=== PATIENT | female | born 1960 | race African-American/Black ===

== ENCOUNTER 2018-04-26 10:07 | Inpatient (IN) | payer OTHER ==
[2018-04-26] MEDS: CEFAZOLIN 2 GM/50 ML (PMX) 50 ML IVPB ×2 (09:30→18:49)
[2018-04-26] MEDS: Metronidazole 500 MG in NS 100 ML IVPB (09:30)
[2018-04-26] MEDS: LACTATED RINGER'S 1,000 ML IV* (10:42)
[2018-04-26] MEDS ORDERED: MIDAZOLAM 1 MG/ML 2 ML INJ (11:53)
[2018-04-26] MEDS ORDERED: FENTAnyl 50 MCG/ML VIAL (12:05)
[2018-04-26] MEDS ORDERED: PROPOFOL 20 ML ×2 (12:14→12:18)
[2018-04-26] MEDS ORDERED: LIDOCAINE 2% (SDV) 5 ML INJ (12:14)
[2018-04-26] MEDS ORDERED: metroNIDAZOLE 500 MG/NS (PMX) 100 ML IVPB (12:14)
[2018-04-26] MEDS ORDERED: CEFAZOLIN 1 GM INJ (12:14)
[2018-04-26] MEDS ORDERED: PHENYLephrine (100 MCG/ML) 5ML SYG (12:14)
[2018-04-26] MEDS ORDERED: SUCCINYLCHOLINE CHLORIDE 100 MG/5 ML SYG IV (12:14)
[2018-04-26] MEDS ORDERED: ROCURONIUM 50 MG INJ (12:14)
[2018-04-26] MEDS ORDERED: FAMOTIDINE 20 MG INJ (12:36)
[2018-04-26] MEDS ORDERED: ONDANSETRON 4 MG INJ (12:36)
[2018-04-26] MEDS ORDERED: hydrALAzine 20 MG INJ (12:56)
[2018-04-26] MEDS ORDERED: HYDROmorphONE 2 MG/ML SYG (12:58)
[2018-04-26] MEDS ORDERED: ESMOLOL 10 ML (13:12)
[2018-04-26] MEDS ORDERED: SUGAMMADEX SODIUM 200 MG/2 ML VIAL IV (13:50)
[2018-04-26] MEDS ORDERED: DIPHENHYDRAMINE 50 MG INJ IV ×2 (14:30)
[2018-04-26] MEDS ORDERED: LABETALOL HCL 20MG INJ IV (14:30)
[2018-04-26] MEDS: D5W-0.45 NACL + KCL 10 MEQ 1,000 ML IV ×2 (14:30→20:17)
[2018-04-26] MEDS ORDERED: MEPERIDINE 25 MG INJ IV (14:30)
[2018-04-26] MEDS ORDERED: PROCHLORPERAZINE 10 MG INJ IV (14:30)
[2018-04-26] MEDS ORDERED: FENTAnyl 50 MCG/ML VIAL IV ×3 (14:30)
[2018-04-26] MEDS ORDERED: HYDROmorphONE 1 MG/5 ML IV SYRINGE IV ×3 (14:30)
[2018-04-26] MEDS ORDERED: LORAZEPAM 2 MG INJ IV (14:30)
[2018-04-26] MEDS ORDERED: OXYCODONE/ACETAMINOPHEN (5/325) TAB PO ×2 (14:30)
[2018-04-26] MEDS: hydrALAzine 20 MG INJ IV (14:53)
[2018-04-26] MEDS: ONDANSETRON 4 MG INJ IV (14:58)
[2018-04-26 15:12] LABS: ANION GAP 11 (8-16); BLOOD UREA NITROGEN 4 mg/dl (7-20); CALCIUM 9.1 mg/dl (8.4-10.2); CARBON DIOXIDE 23 mmol/L (21-31); CHLORIDE 110 mmol/L (97-110); CREATININE 0.72 mg/dl (0.44-1.00); GLUCOSE 144 mg/dl (70-220); POTASSIUM 3.8 mmol/L (3.5-5.1); SODIUM 140 mmol/L (135-144)
[2018-04-26] MEDS: HYDROmorphONE 1 MG/ML SYG IV ×2 (15:46→20:16)
[2018-04-26] MEDS: metroNIDAZOLE 500 MG/NS (PMX) 100 ML IVPB (18:49)
[2018-04-26] MEDS: KETOROLAC 15 MG INJ IV (23:08)
[2018-04-26] MEDS: ACETAMINOPHEN 1000MG/100ML IV 100 ML IVPB (23:08)
[2018-04-27] MEDS: CEFAZOLIN 2 GM/50 ML (PMX) 50 ML IVPB ×2 (01:37→10:01)
[2018-04-27] MEDS: metroNIDAZOLE 500 MG/NS (PMX) 100 ML IVPB ×2 (02:50→10:02)
[2018-04-27] MEDS: ALBUTEROL HFA 8 GM INHALER INH ×5 (04:11→21:00)
[2018-04-27] MEDS: HYDROmorphONE 1 MG/ML SYG IV (04:15)
[2018-04-27 05:13] LABS: ADD MAN DIFF? NO
[2018-04-27 05:18] LABS: BASOPHIL # 0.1 10^3/ul (0.0-0.1); BASOPHILS % 0.3 % (0.0-2.0); HEMATOCRIT 44.2 % (37.0-47.0); HEMOGLOBIN 14.5 g/dl (12.0-16.0); LYMPHOCYTES # 1.8 10^3/ul (0.8-2.9); LYMPHOCYTES % 8.1 % (15.0-51.0); MEAN CORPUSCULAR HEMOGLOBIN 31.3 pg (29.0-33.0); MEAN CORPUSCULAR HGB CONC 32.8 g/dl (32.0-37.0); MEAN CORPUSCULAR VOLUME 95.5 fl (82.0-101.0); MEAN PLATELET VOLUME 11.7 fl (7.4-10.4); MONOCYTE # 0.7 10^3/ul (0.3-0.9); MONOCYTES % 3.1 % (0.0-11.0); NEUTROPHIL # 19.5 10^3/ul (1.6-7.5); NEUTROPHILS % 87.9 % (39.0-77.0); PLATELET COUNT 279 10^3/UL (140-415); RED BLOOD COUNT 4.63 10^6/ul (4.20-5.40); RED CELL DISTRIBUTION WIDTH 17.2 % (11.5-14.5)
[2018-04-27 05:18] LABS: WHITE BLOOD COUNT 22.1 10^3/ul (4.8-10.8)
[2018-04-27 05:33] LABS: INR 0.99; PROTIME 13.2 Sec (11.9-14.9)
[2018-04-27 05:40] LABS: ANION GAP 12 (8-16); BLOOD UREA NITROGEN 3 mg/dl (7-20); CALCIUM 9.6 mg/dl (8.4-10.2); CARBON DIOXIDE 30 mmol/L (21-31); CHLORIDE 101 mmol/L (97-110); CREATININE 0.74 mg/dl (0.44-1.00); GLUCOSE 163 mg/dl (70-220); POTASSIUM 3.9 mmol/L (3.5-5.1); SODIUM 139 mmol/L (135-144)
[2018-04-27] MEDS ORDERED: KETOROLAC 15 MG INJ IV (06:00)
[2018-04-27] MEDS: D5W-0.45 NACL + KCL 10 MEQ 1,000 ML IV ×2 (06:24→16:04)
[2018-04-27] MEDS: PANTOPRAZOLE (EC) 40 MG TAB PO (06:24)
[2018-04-27] MEDS: ENOXAPARIN 40 MG/0.4 ML SYG SC (06:32)
[2018-04-27] MEDS: KETOROLAC 15 MG INJ IV ×3 (06:33→21:09)
[2018-04-27] MEDS: ONDANSETRON 4 MG INJ IV (06:37)
[2018-04-27] MEDS ORDERED: SPECIAL NON-STANDARD MEDICATION PO (09:00)
[2018-04-27] MEDS: MULTIVITAMINS THERAPEUTIC TAB PO (09:06)
[2018-04-27] MEDS: FOLIC ACID 1 MG TAB PO (09:06)
[2018-04-27] MEDS: FERROUS SULFATE (EC) 325 MG TAB PO (09:06)
[2018-04-27] MEDS: CITALOPRAM 20 MG TAB PO (09:06)
[2018-04-27] MEDS: GABAPENTIN 300 MG CAP PO ×3 (09:06→21:07)
[2018-04-27] MEDS: BACLOFEN 10 MG TAB PO (09:06)
[2018-04-27] MEDS: AMLODIPINE 10 MG TAB PO (09:07)
[2018-04-27] MEDS: ACETAMINOPHEN 1000MG/100ML IV 100 ML IVPB (18:30)
[2018-04-27] MEDS: ATORVASTATIN 40 MG TAB PO (21:07)
[2018-04-28] MEDS: D5W-0.45 NACL + KCL 10 MEQ 1,000 ML IV ×2 (00:38→06:30)
[2018-04-28] MEDS: ALBUTEROL HFA 8 GM INHALER INH ×6 (00:40→20:59)
[2018-04-28 05:06] LABS: ADD MAN DIFF? NO
[2018-04-28 05:15] LABS: BASOPHIL # 0.1 10^3/ul (0.0-0.1); BASOPHILS % 0.3 % (0.0-2.0); EOSINOPHILS % 0.2 % (0.0-7.0); HEMATOCRIT 32.7 % (37.0-47.0); HEMOGLOBIN 10.8 g/dl (12.0-16.0); LYMPHOCYTES # 2.8 10^3/ul (0.8-2.9); LYMPHOCYTES % 16.3 % (15.0-51.0); MEAN CORPUSCULAR HEMOGLOBIN 31.2 pg (29.0-33.0); MEAN CORPUSCULAR VOLUME 94.5 fl (82.0-101.0); MEAN PLATELET VOLUME 11.8 fl (7.4-10.4); MONOCYTE # 1.1 10^3/ul (0.3-0.9); MONOCYTES % 6.2 % (0.0-11.0); NEUTROPHIL # 12.9 10^3/ul (1.6-7.5); NEUTROPHILS % 76.4 % (39.0-77.0); PLATELET COUNT 239 10^3/UL (140-415); RED BLOOD COUNT 3.46 10^6/ul (4.20-5.40)
[2018-04-28 05:15] LABS: WHITE BLOOD COUNT 16.9 10^3/ul (4.8-10.8)
[2018-04-28 05:24] LABS: HEMOGLOBIN A1C 5.7 % (0-5.9)
[2018-04-28] MEDS: PANTOPRAZOLE (EC) 40 MG TAB PO (05:28)
[2018-04-28] MEDS: KETOROLAC 15 MG INJ IV (05:31)
[2018-04-28 05:45] LABS: CHOL/HDL RATIO 3.2 RATIO; CHOLESTEROL 147 mg/dl (100-200); HDL CHOLESTEROL 45 mg/dl (37-92); LDL CHOLESTEROL,CALCULATED 83 mg/dl; MAGNESIUM 1.9 mg/dl (1.7-2.5); TRIGLYCERIDES 97 mg/dl (0-149)
[2018-04-28 05:45] LABS: PHOSPHORUS 2.2 mg/dl (2.5-4.9)
[2018-04-28 05:49] LABS: ALANINE AMINOTRANSFERASE 11 IU/L (13-69); ALBUMIN 3.6 g/dl (3.3-4.9); ALBUMIN/GLOBULIN RATIO 1.16; ALKALINE PHOSPHATASE 94 IU/L (42-121); ANION GAP 9 (8-16); ASPARTATE AMINO TRANSFERASE 13 IU/L (15-46); BILIRUBIN,INDIRECT 0.6 mg/dl (0-1.1); BILIRUBIN,TOTAL 0.6 mg/dl (0.2-1.3); BLOOD UREA NITROGEN 8 mg/dl (7-20); CALCIUM 9.4 mg/dl (8.4-10.2); CARBON DIOXIDE 30 mmol/L (21-31); CHLORIDE 105 mmol/L (97-110); CREATININE 0.75 mg/dl (0.44-1.00); GLUCOSE 124 mg/dl (70-220); POTASSIUM 3.7 mmol/L (3.5-5.1); SODIUM 140 mmol/L (135-144); TOTAL PROTEIN 6.7 g/dl (6.1-8.1)
[2018-04-28] MEDS: ENOXAPARIN 40 MG/0.4 ML SYG SC ×2 (06:49→10:59)
[2018-04-28 08:40] LABS: ADD MAN DIFF? NO
[2018-04-28 08:42] LABS: WHITE BLOOD COUNT 15.6 10^3/ul (4.8-10.8)
[2018-04-28 08:42] LABS: BASOPHIL # 0.1 10^3/ul (0.0-0.1); BASOPHILS % 0.4 % (0.0-2.0); EOSINOPHILS # 0.1 10^3/ul (0.0-0.5); EOSINOPHILS % 0.5 % (0.0-7.0); HEMATOCRIT 32.1 % (37.0-47.0); HEMOGLOBIN 10.8 g/dl (12.0-16.0); LYMPHOCYTES # 2.7 10^3/ul (0.8-2.9); LYMPHOCYTES % 17.3 % (15.0-51.0); MEAN CORPUSCULAR HEMOGLOBIN 32.3 pg (29.0-33.0); MEAN CORPUSCULAR HGB CONC 33.6 g/dl (32.0-37.0); MEAN CORPUSCULAR VOLUME 96.1 fl (82.0-101.0); MEAN PLATELET VOLUME 11.6 fl (7.4-10.4); MONOCYTE # 0.9 10^3/ul (0.3-0.9); NEUTROPHIL # 11.8 10^3/ul (1.6-7.5); NEUTROPHILS % 75.4 % (39.0-77.0); PLATELET COUNT 235 10^3/UL (140-415); RED BLOOD COUNT 3.34 10^6/ul (4.20-5.40); RED CELL DISTRIBUTION WIDTH 17.1 % (11.5-14.5)
[2018-04-28] MEDS: GABAPENTIN 300 MG CAP PO ×3 (08:58→20:58)
[2018-04-28] MEDS: BACLOFEN 10 MG TAB PO (08:58)
[2018-04-28] MEDS: FOLIC ACID 1 MG TAB PO (08:58)
[2018-04-28] MEDS: FERROUS SULFATE (EC) 325 MG TAB PO (08:58)
[2018-04-28] MEDS: MULTIVITAMINS THERAPEUTIC TAB PO (08:58)
[2018-04-28] MEDS: CITALOPRAM 20 MG TAB PO (08:58)
[2018-04-28] MEDS: AMLODIPINE 10 MG TAB PO (08:59)
[2018-04-28 15:01] LABS: HEMATOCRIT 34.8 % (37.0-47.0); HEMOGLOBIN 11.3 g/dl (12.0-16.0)
[2018-04-28] MEDS: DOLUTEGRAVIR XX ×2 (17:30→18:18)
[2018-04-28] MEDS: LAMIVUDINE XX ×2 (17:30→18:18)
[2018-04-28] MEDS: ABACAVIR XX ×2 (17:30→18:18)
[2018-04-28] MEDS: [UNRECOGNIZED DRUG - OTHER] XX ×2 (17:30→18:18)
[2018-04-28] MEDS: HYDROCODONE/APAP (5/325) TAB PO ×2 (18:17→20:58)
[2018-04-28 18:58] LABS: HEMATOCRIT 34.1 % (37.0-47.0); HEMOGLOBIN 11.4 g/dl (12.0-16.0)
[2018-04-28] MEDS: ATORVASTATIN 40 MG TAB PO (20:58)
[2018-04-29] MEDS: ALBUTEROL HFA 8 GM INHALER INH ×6 (01:00→20:16)
[2018-04-29] MEDS: PANTOPRAZOLE (EC) 40 MG TAB PO (04:44)
[2018-04-29] MEDS: ABACAVIR XX ×3 (04:49→17:30)
[2018-04-29] MEDS: DOLUTEGRAVIR XX ×3 (04:49→17:30)
[2018-04-29] MEDS: [UNRECOGNIZED DRUG - OTHER] XX ×3 (04:49→17:30)
[2018-04-29] MEDS: LAMIVUDINE XX ×3 (04:49→17:30)
[2018-04-29 05:37] LABS: ADD MAN DIFF? NO
[2018-04-29 05:46] LABS: WHITE BLOOD COUNT 15.5 10^3/ul (4.8-10.8)
[2018-04-29 05:46] LABS: BASOPHIL # 0.1 10^3/ul (0.0-0.1); BASOPHILS % 0.5 % (0.0-2.0); EOSINOPHILS # 0.1 10^3/ul (0.0-0.5); EOSINOPHILS % 0.6 % (0.0-7.0); HEMATOCRIT 32.6 % (37.0-47.0); HEMOGLOBIN 10.7 g/dl (12.0-16.0); LYMPHOCYTES # 2.8 10^3/ul (0.8-2.9); LYMPHOCYTES % 17.8 % (15.0-51.0); MEAN CORPUSCULAR HEMOGLOBIN 31.2 pg (29.0-33.0); MEAN CORPUSCULAR HGB CONC 32.8 g/dl (32.0-37.0); MEAN PLATELET VOLUME 11.8 fl (7.4-10.4); MONOCYTE # 0.8 10^3/ul (0.3-0.9); NEUTROPHIL # 11.7 10^3/ul (1.6-7.5); NEUTROPHILS % 75.6 % (39.0-77.0); PLATELET COUNT 258 10^3/UL (140-415); RED BLOOD COUNT 3.43 10^6/ul (4.20-5.40)
[2018-04-29 06:06] LABS: PHOSPHORUS 3.6 mg/dl (2.5-4.9)
[2018-04-29 06:06] LABS: MAGNESIUM 1.9 mg/dl (1.7-2.5)
[2018-04-29 06:18] LABS: ANION GAP 10 (8-16); BLOOD UREA NITROGEN 13 mg/dl (7-20); CALCIUM 9.3 mg/dl (8.4-10.2); CARBON DIOXIDE 28 mmol/L (21-31); CHLORIDE 107 mmol/L (97-110); CREATININE 0.72 mg/dl (0.44-1.00); GLUCOSE 120 mg/dl (70-220); POTASSIUM 3.7 mmol/L (3.5-5.1); SODIUM 141 mmol/L (135-144)
[2018-04-29] MEDS: BACLOFEN 10 MG TAB PO (08:57)
[2018-04-29] MEDS: CITALOPRAM 20 MG TAB PO (08:57)
[2018-04-29] MEDS: MULTIVITAMINS THERAPEUTIC TAB PO (08:57)
[2018-04-29] MEDS: ERGOCALCIFEROL 50,000 UNIT CAP PO (08:57)
[2018-04-29] MEDS: FERROUS SULFATE (EC) 325 MG TAB PO (08:57)
[2018-04-29] MEDS: FOLIC ACID 1 MG TAB PO (08:57)
[2018-04-29] MEDS: GABAPENTIN 300 MG CAP PO ×3 (08:57→20:16)
[2018-04-29] MEDS: HYDROCODONE/APAP (5/325) TAB PO ×3 (08:57→18:27)
[2018-04-29] MEDS: AMLODIPINE 10 MG TAB PO (08:59)
[2018-04-29] MEDS: ATORVASTATIN 40 MG TAB PO (20:16)
[2018-05-12 14:04] LABS: LYMPHOCYTE - % CD4 (HELPER) 30 % (30-61); LYMPHOCYTE - %CD8 (SUPPRESSOR) 54 % (12-42); LYMPHOCYTE - ABSOLUTE 2688 cells/uL (850-3900); LYMPHOCYTE - ABSOLUTE CD4 805 cells/uL (490-1740); LYMPHOCYTE - ABSOLUTE CD8 1462 cells/uL (180-1170); LYMPHOCYTE - CD4/CD8 RATIO 0.55 (0.86-5.00)
== END 2018-04-29 22:15 | disposition home or self-care (01) | DRG 329 ==
LOC: REC 10:07 → MS1 15:30
PROC: 0DBB0ZZ Excision of Ileum, Open Approach (ICD-10-PCS; principal; 2018-04-26 11:30)
PROC: 0WQF0ZZ Repair Abdominal Wall, Open Approach (ICD-10-PCS; 2018-04-26 11:30)
DX: Z43.2 Encounter for attention to ileostomy (principal); B20 Human immunodeficiency virus [HIV] disease; K63.2 Fistula of intestine; K43.5 Parastomal hernia without obstruction or gangrene; I10 Essential (primary) hypertension; D64.9 Anemia, unspecified; J44.9 Chronic obstructive pulmonary disease, unspecified
CPT/HCPCS: 80048; 80053; 80061; 82962; 83036; 83735; 84100; 85014; 85018; 85025; 85610; 86360; 87086; 87536; 88302; 88304; 93970; 97110; 97116; 97162; 97530

== ENCOUNTER 2018-05-04 22:40 | Inpatient (IN) | payer OTHER ==
[2018-05-05] MEDS: morphine 4 MG/ML VIAL IV (00:27)
[2018-05-05] MEDS: ONDANSETRON 4 MG INJ IV (00:27)
[2018-05-05 00:37] LABS: HEMATOCRIT 35.1 % (37.0-47.0); HEMOGLOBIN 11.8 g/dl (12.0-16.0); MEAN CORPUSCULAR HEMOGLOBIN 30.7 pg (29.0-33.0); MEAN CORPUSCULAR HGB CONC 33.6 g/dl (32.0-37.0); MEAN CORPUSCULAR VOLUME 91.4 fl (82.0-101.0); MEAN PLATELET VOLUME 11.1 fl (7.4-10.4); NUCLEATED RED BLOOD CELLS% 0.3 /100WBC (0.0-0.0); PLATELET COUNT 482 10^3/UL (140-415); RED BLOOD COUNT 3.84 10^6/ul (4.20-5.40); RED CELL DISTRIBUTION WIDTH 15.9 % (11.5-14.5)
[2018-05-05 00:37] LABS: WHITE BLOOD COUNT 11.3 10^3/ul (4.8-10.8)
[2018-05-05 00:42] LABS: ADD MAN DIFF? YES; ALANINE AMINOTRANSFERASE 17 IU/L (13-69); ALBUMIN 4.4 g/dl (3.3-4.9); ALKALINE PHOSPHATASE 142 IU/L (42-121); ANION GAP 21 (8-16); ASPARTATE AMINO TRANSFERASE 21 IU/L (15-46); BILIRUBIN,INDIRECT 0.5 mg/dl (0-1.1); BILIRUBIN,TOTAL 0.5 mg/dl (0.2-1.3); BLOOD UREA NITROGEN 23 mg/dl (7-20); CARBON DIOXIDE 27 mmol/L (21-31); CHLORIDE 84 mmol/L (97-110); CREATININE 1.62 mg/dl (0.44-1.00); GLUCOSE 154 mg/dl (70-220); LIPASE 80 U/L (23-300); POSITIVE DIFF @See below; SODIUM 129 mmol/L (135-144); TOTAL PROTEIN 8.4 g/dl (6.1-8.1)
[2018-05-05 00:49] LABS: POTASSIUM 2.8 mmol/L (3.5-5.1)
[2018-05-05 00:54] LABS: TROPONIN-I < 0.010 ng/ml (0.000-0.120)
[2018-05-05] MEDS ORDERED: SOD CHLORIDE 0.9% 1,000 ML IV (01:34)
[2018-05-05] MEDS: SOD CHLORIDE 0.9% 1,000 ML IV ×2 (01:45→08:01)
[2018-05-05 01:54] LABS: BAND NEUTROPHILS #M 2.7 10^3/ul (0.0-0.6); BAND NEUTROPHILS % (M) 24 % (0-4); EOSINOPHILS % (M) 1 % (0-7); ERYTHROBLAST% (NRBC) (M) 1 % (0-0); LYMPHOCYTES #M 1.2 10^3/ul (0.8-2.9); LYMPHOCYTES % (M) 11 % (15-51); MONOCYTE #M 1.3 10^3/ul (0.3-0.9); MONOCYTES % (M) 12 % (0-11); PLATELET ESTIMATE NORMAL; PLATELET MORPHOLOGY COMMENT @See below; POLYCHROMASIA 1+ (0-0); SEG NEUT #M 6.3 10^3/ul (1.6-7.5); SEGMENTED NEUTROPHILS (M) % 53 % (39-77)
[2018-05-05] MEDS ORDERED: MAGNESIUM SULFATE 2 GM/50 ML 50 ML IVPB ×2 (02:00→04:55)
[2018-05-05] MEDS ORDERED: NACL 0.9% 3 ML SYG IV (02:00)
[2018-05-05] MEDS: LORAZEPAM 2 MG INJ IV (02:45)
[2018-05-05] MEDS: POTASSIUM CHLORIDE 100 ML IVPB ×2 (02:57→13:31)
[2018-05-05 04:55] LABS: MAGNESIUM 2.2 mg/dl (1.7-2.5)
[2018-05-05] MEDS: NS + KCL 20 MEQ 1,000 ML IV ×3 (05:04→20:32)
[2018-05-05 06:11] LABS: ADD MAN DIFF? NO
[2018-05-05 06:19] LABS: ABNORMAL IP MESSAGE 1; BASOPHIL # 0.1 10^3/ul (0.0-0.1); BASOPHILS % 0.5 % (0.0-2.0); EOSINOPHILS % 0.2 % (0.0-7.0); HEMATOCRIT 32.6 % (37.0-47.0); HEMOGLOBIN 11.3 g/dl (12.0-16.0); LYMPHOCYTES % 18.8 % (15.0-51.0); MEAN CORPUSCULAR HEMOGLOBIN 31.4 pg (29.0-33.0); MEAN CORPUSCULAR HGB CONC 34.7 g/dl (32.0-37.0); MEAN CORPUSCULAR VOLUME 90.6 fl (82.0-101.0); MEAN PLATELET VOLUME 12.1 fl (7.4-10.4); MONOCYTE # 1.8 10^3/ul (0.3-0.9); MONOCYTES % 16.9 % (0.0-11.0); NEUTROPHIL # 6.7 10^3/ul (1.6-7.5); NEUTROPHILS % 62.9 % (39.0-77.0); NUCLEATED RED BLOOD CELLS% 0.3 /100WBC (0.0-0.0); PLATELET COUNT 331 10^3/UL (140-415); RED CELL DISTRIBUTION WIDTH 15.9 % (11.5-14.5)
[2018-05-05 06:19] LABS: WHITE BLOOD COUNT 10.7 10^3/ul (4.8-10.8)
[2018-05-05 06:25] LABS: POSITIVE DIFF @See below
[2018-05-05 08:29] LABS: ANISOCYTOSIS 1+ (0-0); BAND NEUTROPHILS #M 1.6 10^3/ul (0.0-0.6); BAND NEUTROPHILS % (M) 15 % (0-4); ERYTHROBLAST% (NRBC) (M) 2 % (0-0); GIANT THROMBO% (M) 5 % (0-0); LYMPHOCYTES #M 1.9 10^3/ul (0.8-2.9); LYMPHOCYTES % (M) 18 % (15-51); MONOCYTE #M 1.9 10^3/ul (0.3-0.9); MONOCYTES % (M) 18 % (0-11); MYELOCYTES #M 0.5 10^3/ul (0.0-0.0); MYELOCYTES % (M) 5 % (0-0); PLATELET ESTIMATE NORMAL; POLYCHROMASIA 2+ (0-0); SEG NEUT #M 4.9 10^3/ul (1.6-7.5); SEGMENTED NEUTROPHILS (M) % 44 % (39-77); SMUDGE%M 6 % (0-0)
[2018-05-05 09:42] LABS: ALANINE AMINOTRANSFERASE 11 IU/L (13-69); ALBUMIN 4.1 g/dl (3.3-4.9); ALKALINE PHOSPHATASE 129 IU/L (42-121); ANION GAP 21 (8-16); ASPARTATE AMINO TRANSFERASE 22 IU/L (15-46); BILIRUBIN,INDIRECT 0.4 mg/dl (0-1.1); BILIRUBIN,TOTAL 0.4 mg/dl (0.2-1.3); BLOOD UREA NITROGEN 27 mg/dl (7-20); CALCIUM 9.8 mg/dl (8.4-10.2); CARBON DIOXIDE 27 mmol/L (21-31); CHLORIDE 85 mmol/L (97-110); CREATININE 1.61 mg/dl (0.44-1.00); GLUCOSE 145 mg/dl (70-220); SODIUM 130 mmol/L (135-144); TOTAL PROTEIN 7.8 g/dl (6.1-8.1)
[2018-05-05] MEDS: DIATR MEGLU/DIATRIZOATE SODIUM 120 ML BTL (10:16)
[2018-05-05] MEDS: METOCLOPRAMIDE 10 MG INJ IV ×2 (13:31→18:08)
[2018-05-05] MEDS: TIOTROPIUM 18 MCG CAPSULE INHA DEV INH (18:09)
[2018-05-05] MEDS: ATORVASTATIN 40 MG TAB PO (20:32)
[2018-05-05] MEDS: morphine 2 MG INJ IV (22:41)
[2018-05-06] MEDS: METOCLOPRAMIDE 10 MG INJ IV ×4 (00:08→18:44)
[2018-05-06] MEDS: ACETAMINOPHEN 325 MG TAB PO (01:45)
[2018-05-06] MEDS: ZOLPIDEM 5 MG TAB PO (01:45)
[2018-05-06] MEDS: morphine 2 MG INJ IV ×3 (04:16→20:03)
[2018-05-06] MEDS: NS + KCL 20 MEQ 1,000 ML IV ×2 (04:17→15:05)
[2018-05-06 05:22] LABS: ADD MAN DIFF? NO
[2018-05-06 05:30] LABS: WHITE BLOOD COUNT 9.7 10^3/ul (4.8-10.8)
[2018-05-06 05:30] LABS: BASOPHILS % 0.3 % (0.0-2.0); EOSINOPHILS % 0.2 % (0.0-7.0); HEMOGLOBIN 9.9 g/dl (12.0-16.0); LYMPHOCYTES % 10.4 % (15.0-51.0); MEAN CORPUSCULAR HEMOGLOBIN 30.7 pg (29.0-33.0); MEAN CORPUSCULAR VOLUME 92.9 fl (82.0-101.0); MEAN PLATELET VOLUME 10.8 fl (7.4-10.4); MONOCYTE # 1.3 10^3/ul (0.3-0.9); MONOCYTES % 12.9 % (0.0-11.0); NEUTROPHIL # 7.2 10^3/ul (1.6-7.5); NEUTROPHILS % 74.8 % (39.0-77.0); NUCLEATED RED BLOOD CELLS% 0.4 /100WBC (0.0-0.0); PLATELET COUNT 447 10^3/UL (140-415); RED BLOOD COUNT 3.23 10^6/ul (4.20-5.40); RED CELL DISTRIBUTION WIDTH 16.1 % (11.5-14.5)
[2018-05-06 05:41] LABS: MAGNESIUM 2.2 mg/dl (1.7-2.5)
[2018-05-06 05:47] LABS: ALANINE AMINOTRANSFERASE 18 IU/L (13-69); ALBUMIN 3.5 g/dl (3.3-4.9); ALBUMIN/GLOBULIN RATIO 1.06; ALKALINE PHOSPHATASE 131 IU/L (42-121); ANION GAP 13 (8-16); ASPARTATE AMINO TRANSFERASE 30 IU/L (15-46); BILIRUBIN,INDIRECT 0.4 mg/dl (0-1.1); BILIRUBIN,TOTAL 0.4 mg/dl (0.2-1.3); BLOOD UREA NITROGEN 16 mg/dl (7-20); CALCIUM 8.9 mg/dl (8.4-10.2); CARBON DIOXIDE 30 mmol/L (21-31); CHLORIDE 95 mmol/L (97-110); CREATININE 0.86 mg/dl (0.44-1.00); GLUCOSE 126 mg/dl (70-220); POTASSIUM 3.4 mmol/L (3.5-5.1); SODIUM 135 mmol/L (135-144); TOTAL PROTEIN 6.8 g/dl (6.1-8.1)
[2018-05-06 06:04] LABS: POSITIVE DIFF @See below
[2018-05-06] MEDS: TRIUMEQ PO (09:34)
[2018-05-06] MEDS: TIOTROPIUM 18 MCG CAPSULE INHA DEV INH (09:34)
[2018-05-06] MEDS: ASPIRIN 81 MG TAB PO (09:34)
[2018-05-06] MEDS: AMLODIPINE 10 MG TAB PO (09:34)
[2018-05-06] MEDS ORDERED: POTASSIUM CHLORIDE (SR) 20 MEQ TAB PO (15:12)
[2018-05-06] MEDS ORDERED: morphine LIQ (10 MG/5 ML) CUP PO (17:00)
[2018-05-06] MEDS: POTASSIUM CHLORIDE 100 ML IVPB ×2 (18:44→21:22)
[2018-05-06] MEDS: ATORVASTATIN 40 MG TAB PO (21:34)
[2018-05-07] MEDS: morphine 2 MG INJ IV ×3 (00:09→14:14)
[2018-05-07] MEDS: METOCLOPRAMIDE 10 MG INJ IV ×4 (00:23→18:36)
[2018-05-07] MEDS: ZOLPIDEM 5 MG TAB PO ×2 (00:23→21:32)
[2018-05-07] MEDS: NS + KCL 20 MEQ 1,000 ML IV ×3 (04:20→23:57)
[2018-05-07 05:12] LABS: ABNORMAL IP MESSAGE 1; HEMATOCRIT 30.4 % (37.0-47.0); MEAN CORPUSCULAR HEMOGLOBIN 30.8 pg (29.0-33.0); MEAN CORPUSCULAR HGB CONC 32.9 g/dl (32.0-37.0); MEAN CORPUSCULAR VOLUME 93.5 fl (82.0-101.0); MEAN PLATELET VOLUME 10.4 fl (7.4-10.4); NUCLEATED RED BLOOD CELLS% 0.8 /100WBC (0.0-0.0); PLATELET COUNT 464 10^3/UL (140-415); RED BLOOD COUNT 3.25 10^6/ul (4.20-5.40); RED CELL DISTRIBUTION WIDTH 16.7 % (11.5-14.5)
[2018-05-07 05:12] LABS: WHITE BLOOD COUNT 12.3 10^3/ul (4.8-10.8)
[2018-05-07 05:16] LABS: ADD MAN DIFF? YES; POSITIVE DIFF @See below
[2018-05-07 06:19] LABS: ALANINE AMINOTRANSFERASE 18 IU/L (13-69); ALBUMIN 3.4 g/dl (3.3-4.9); ALBUMIN/GLOBULIN RATIO 1.09; ALKALINE PHOSPHATASE 133 IU/L (42-121); ANION GAP 18 (8-16); ASPARTATE AMINO TRANSFERASE 35 IU/L (15-46); BILIRUBIN,INDIRECT 0.4 mg/dl (0-1.1); BILIRUBIN,TOTAL 0.4 mg/dl (0.2-1.3); BLOOD UREA NITROGEN 13 mg/dl (7-20); CALCIUM 9.2 mg/dl (8.4-10.2); CARBON DIOXIDE 25 mmol/L (21-31); CHLORIDE 94 mmol/L (97-110); CREATININE 0.74 mg/dl (0.44-1.00); GLUCOSE 94 mg/dl (70-220); SODIUM 133 mmol/L (135-144); TOTAL PROTEIN 6.5 g/dl (6.1-8.1)
[2018-05-07 08:13] LABS: ANISOCYTOSIS 3+ (0-0); BAND NEUTROPHILS #M 4.6 10^3/ul (0.0-0.6); BAND NEUTROPHILS % (M) 38 % (0-4); BASOPHIL #M 0.1 10^3/ul (0.0-0.0); BASOPHILS % (M) 1 % (0-2); ERYTHROBLAST% (NRBC) (M) 1 % (0-0); GIANT THROMBO% (M) 2 % (0-0); HYPOCHROMASIA 1+ (0-0); LYMPHOCYTES #M 0.7 10^3/ul (0.8-2.9); LYMPHOCYTES % (M) 6 % (15-51); MONOCYTE #M 0.7 10^3/ul (0.3-0.9); MONOCYTES % (M) 6 % (0-11); MYELOCYTES #M 0.3 10^3/ul (0.0-0.0); MYELOCYTES % (M) 3 % (0-0); PLATELET ESTIMATE NORMAL; POLYCHROMASIA 1+ (0-0); PROMYELOCYTES #M 0.3 10^3/ul (0-0); PROMYELOCYTES % (M) 3 % (0-0); SEG NEUT #M 5.9 10^3/ul (1.6-7.5); SEGMENTED NEUTROPHILS (M) % 43 % (39-77); SMUDGE%M 6 % (0-0)
[2018-05-07] MEDS: ASPIRIN 81 MG TAB PO (09:27)
[2018-05-07] MEDS: TIOTROPIUM 18 MCG CAPSULE INHA DEV INH (09:27)
[2018-05-07] MEDS: TRIUMEQ PO (09:29)
[2018-05-07] MEDS: AMLODIPINE 10 MG TAB PO (09:30)
[2018-05-07] MEDS: DIATR MEGLU/DIATRIZOATE SODIUM 120 ML BTL (10:04)
[2018-05-07] MEDS: ONDANSETRON 4 MG INJ IV (11:55)
[2018-05-07] MEDS: KETOROLAC 15 MG INJ IV (21:09)
[2018-05-07] MEDS: ATORVASTATIN 40 MG TAB PO (21:32)
[2018-05-08] MEDS: METOCLOPRAMIDE 10 MG INJ IV ×4 (00:36→17:39)
[2018-05-08 05:33] LABS: WHITE BLOOD COUNT 11.7 10^3/ul (4.8-10.8)
[2018-05-08 05:33] LABS: ABNORMAL IP MESSAGE 1; HEMATOCRIT 29.3 % (37.0-47.0); HEMOGLOBIN 9.8 g/dl (12.0-16.0); MEAN CORPUSCULAR HEMOGLOBIN 31.3 pg (29.0-33.0); MEAN CORPUSCULAR HGB CONC 33.4 g/dl (32.0-37.0); MEAN CORPUSCULAR VOLUME 93.6 fl (82.0-101.0); MEAN PLATELET VOLUME 10.4 fl (7.4-10.4); NUCLEATED RED BLOOD CELLS% 0.9 /100WBC (0.0-0.0); PLATELET COUNT 499 10^3/UL (140-415); RED BLOOD COUNT 3.13 10^6/ul (4.20-5.40); RED CELL DISTRIBUTION WIDTH 16.6 % (11.5-14.5)
[2018-05-08 05:44] LABS: ADD MAN DIFF? YES; POSITIVE DIFF @See below
[2018-05-08 06:05] LABS: MAGNESIUM 2.2 mg/dl (1.7-2.5)
[2018-05-08 06:13] LABS: ALANINE AMINOTRANSFERASE 19 IU/L (13-69); ALBUMIN 3.7 g/dl (3.3-4.9); ALBUMIN/GLOBULIN RATIO 1.15; ALKALINE PHOSPHATASE 131 IU/L (42-121); ANION GAP 23 (8-16); ASPARTATE AMINO TRANSFERASE 31 IU/L (15-46); BILIRUBIN,INDIRECT 0.3 mg/dl (0-1.1); BILIRUBIN,TOTAL 0.3 mg/dl (0.2-1.3); BLOOD UREA NITROGEN 14 mg/dl (7-20); CALCIUM 9.2 mg/dl (8.4-10.2); CARBON DIOXIDE 24 mmol/L (21-31); CHLORIDE 94 mmol/L (97-110); CREATININE 0.81 mg/dl (0.44-1.00); GLUCOSE 93 mg/dl (70-220); POTASSIUM 3.6 mmol/L (3.5-5.1); SODIUM 137 mmol/L (135-144); TOTAL PROTEIN 6.9 g/dl (6.1-8.1)
[2018-05-08] MEDS: KETOROLAC 15 MG INJ IV ×3 (07:56→21:26)
[2018-05-08 07:59] LABS: ANISOCYTOSIS 1+ (0-0); BAND NEUTROPHILS #M 1.2 10^3/ul (0.0-0.6); BAND NEUTROPHILS % (M) 11 % (0-4); ERYTHROBLAST% (NRBC) (M) 3 % (0-0); LYMPHOCYTES #M 2.4 10^3/ul (0.8-2.9); LYMPHOCYTES % (M) 21 % (15-51); MONOCYTE #M 1.6 10^3/ul (0.3-0.9); MONOCYTES % (M) 14 % (0-11); MYELOCYTES #M 0.2 10^3/ul (0.0-0.0); MYELOCYTES % (M) 2 % (0-0); PLATELET ESTIMATE INCREASED; POLYCHROMASIA 2+ (0-0); SEG NEUT #M 6.2 10^3/ul (1.6-7.5); SEGMENTED NEUTROPHILS (M) % 52 % (39-77); SMUDGE%M 7 % (0-0)
[2018-05-08] MEDS: ASPIRIN 81 MG TAB PO (08:15)
[2018-05-08] MEDS: AMLODIPINE 10 MG TAB PO (08:16)
[2018-05-08] MEDS: TIOTROPIUM 18 MCG CAPSULE INHA DEV INH (08:16)
[2018-05-08] MEDS: TRIUMEQ PO (08:17)
[2018-05-08] MEDS: NS + KCL 20 MEQ 1,000 ML IV ×2 (11:26→20:53)
[2018-05-08] MEDS: METOPROLOL 25 MG TAB PO ×2 (18:06→23:02)
[2018-05-08] MEDS: ZOLPIDEM 5 MG TAB PO (20:52)
[2018-05-08] MEDS: ATORVASTATIN 40 MG TAB PO (20:52)
[2018-05-08] MEDS: SOD CHLORIDE 0.9% 500 ML IV (21:25)
[2018-05-09] MEDS: METOCLOPRAMIDE 10 MG INJ IV ×4 (00:17→18:00)
[2018-05-09] MEDS: KETOROLAC 15 MG INJ IV ×2 (04:17→12:24)
[2018-05-09 05:35] LABS: ABNORMAL IP MESSAGE 1; HEMATOCRIT 35.1 % (37.0-47.0); HEMOGLOBIN 11.6 g/dl (12.0-16.0); MEAN CORPUSCULAR HEMOGLOBIN 30.5 pg (29.0-33.0); MEAN CORPUSCULAR VOLUME 92.4 fl (82.0-101.0); MEAN PLATELET VOLUME 10.6 fl (7.4-10.4); NUCLEATED RED BLOOD CELLS% 0.3 /100WBC (0.0-0.0); PLATELET COUNT 502 10^3/UL (140-415); RED CELL DISTRIBUTION WIDTH 16.9 % (11.5-14.5)
[2018-05-09 05:59] LABS: MAGNESIUM 1.9 mg/dl (1.7-2.5)
[2018-05-09] MEDS: NS + KCL 20 MEQ 1,000 ML IV ×3 (06:00→16:00)
[2018-05-09 06:01] LABS: ALANINE AMINOTRANSFERASE 20 IU/L (13-69); ALBUMIN 3.6 g/dl (3.3-4.9); ALBUMIN/GLOBULIN RATIO 1.16; ALKALINE PHOSPHATASE 114 IU/L (42-121); ANION GAP 19 (8-16); ASPARTATE AMINO TRANSFERASE 25 IU/L (15-46); BILIRUBIN,INDIRECT 0.4 mg/dl (0-1.1); BILIRUBIN,TOTAL 0.4 mg/dl (0.2-1.3); BLOOD UREA NITROGEN 11 mg/dl (7-20); CARBON DIOXIDE 23 mmol/L (21-31); CHLORIDE 96 mmol/L (97-110); CREATININE 0.77 mg/dl (0.44-1.00); GLUCOSE 96 mg/dl (70-220); POTASSIUM 3.8 mmol/L (3.5-5.1); SODIUM 134 mmol/L (135-144); TOTAL PROTEIN 6.7 g/dl (6.1-8.1)
[2018-05-09 06:18] LABS: ADD MAN DIFF? YES; POSITIVE DIFF @See below
[2018-05-09] MEDS ORDERED: ROCURONIUM 50 MG INJ ×2 (07:00→16:23)
[2018-05-09 07:31] LABS: ANISOCYTOSIS 1+ (0-0); BAND NEUTROPHILS #M 3.6 10^3/ul (0.0-0.6); BAND NEUTROPHILS % (M) 15 % (0-4); GIANT THROMBO% (M) 3 % (0-0); LYMPHOCYTES #M 1.4 10^3/ul (0.8-2.9); LYMPHOCYTES % (M) 6 % (15-51); MONOCYTE #M 1.4 10^3/ul (0.3-0.9); MONOCYTES % (M) 6 % (0-11); PLATELET ESTIMATE INCREASED; SEG NEUT #M 18.4 10^3/ul (1.6-7.5); SEGMENTED NEUTROPHILS (M) % 73 % (39-77); SMUDGE%M 65 % (0-0)
[2018-05-09] MEDS: AMLODIPINE 10 MG TAB PO (09:00)
[2018-05-09] MEDS: TIOTROPIUM 18 MCG CAPSULE INHA DEV INH (09:37)
[2018-05-09] MEDS: TRIUMEQ PO (09:39)
[2018-05-09] MEDS: ASPIRIN 81 MG TAB PO (09:39)
[2018-05-09] MEDS: METOPROLOL 25 MG TAB PO ×2 (09:40→21:00)
[2018-05-09] MEDS: PIPER-TAZO 3.375 GM IV (PMX) 100 ML IVPB ×3 (10:24→23:12)
[2018-05-09 16:13] LABS: INR 1.32; PROTIME 16.6 Sec (11.9-14.9); PT RATIO 1.3
[2018-05-09 16:14] LABS: PARTIAL THROMBOPLASTIN TIME 39.1 Sec (25.0-35.0)
[2018-05-09] MEDS ORDERED: GLYCOPYRROLATE 0.4 MG INJ (16:23)
[2018-05-09] MEDS ORDERED: NEOSTIGMINE 3 MG/3 ML SYRINGE (16:23)
[2018-05-09] MEDS ORDERED: PROPOFOL 20 ML (16:23)
[2018-05-09] MEDS ORDERED: CEFAZOLIN 1 GM INJ (16:23)
[2018-05-09] MEDS ORDERED: ONDANSETRON 4 MG INJ (16:26)
[2018-05-09] MEDS ORDERED: DEXAMETHASONE 4 MG/ML 1 ML INJ (16:26)
[2018-05-09] MEDS ORDERED: FENTAnyl 50 MCG/ML VIAL (16:26)
[2018-05-09] MEDS ORDERED: MIDAZOLAM 1 MG/ML 2 ML INJ (16:26)
[2018-05-09] MEDS ORDERED: morphine SULFATE/PF (10 MG/10 ML) INJ (16:27)
[2018-05-09] MEDS ORDERED: BUPIVACAINE 0.75%/DEXT (SPINAL) 2 ML INJ (16:27)
[2018-05-09] MEDS ORDERED: DIPHENHYDRAMINE 50 MG INJ IV ×3 (16:30→20:00)
[2018-05-09] MEDS ORDERED: hydrALAzine 20 MG INJ IV (16:30)
[2018-05-09] MEDS ORDERED: EPHEDrine SULFATE 50 MG/5 ML SYG IV (16:30)
[2018-05-09] MEDS ORDERED: ONDANSETRON 4 MG INJ IV ×3 (16:30→20:00)
[2018-05-09] MEDS ORDERED: TRIMETHOBENZAMIDE 100 MG/ML VIAL IM ×2 (16:30→18:00)
[2018-05-09] MEDS ORDERED: IPRATROPIUM (NEB) 0.5 MG/2.5 ML AMP HHN (16:30)
[2018-05-09] MEDS ORDERED: MEPERIDINE 25 MG INJ IV (16:30)
[2018-05-09] MEDS ORDERED: FENTAnyl 50 MCG/ML VIAL IV ×3 (16:30)
[2018-05-09] MEDS ORDERED: ALBUTEROL 0.083% (NEB) 2.5 MG/3 ML AMP HHN (16:30)
[2018-05-09] MEDS ORDERED: OXYCODONE/ACETAMINOPHEN (5/325) TAB PO ×2 (16:30)
[2018-05-09] MEDS ORDERED: HYDROmorphONE 1 MG/5 ML IV SYRINGE IV ×3 (16:30)
[2018-05-09] MEDS ORDERED: MIDAZOLAM 1 MG/ML 2 ML INJ IV (16:30)
[2018-05-09] MEDS ORDERED: LABETALOL HCL 20MG INJ IV (16:30)
[2018-05-09] MEDS ORDERED: PHENYLephrine (100 MCG/ML) 5ML SYG ×2 (16:51→19:20)
[2018-05-09] MEDS ORDERED: HYDROmorphONE 0.5 MG/0.5 ML SYG IV (18:00)
[2018-05-09] MEDS ORDERED: NALOXONE (0.4 MG/ML) INJ IV (18:00)
[2018-05-09] MEDS ORDERED: NALBUPHINE HCL (10 MG/1 ML) INJ IV (18:00)
[2018-05-09] MEDS ORDERED: POLYMYXIN/BACITRACIN 1L IRRIG (18:41)
[2018-05-09] MEDS ORDERED: D5W-0.45 NACL + KCL 10 MEQ 1,000 ML IV (19:47)
[2018-05-09] MEDS: PROPOFOL 100 ML IV (20:30)
[2018-05-09] MEDS: SOD CHLORIDE 0.9% 500 ML IV (20:43)
[2018-05-09] MEDS: LIDOCAINE 1% (MPF) 5 ML VIAL SC (20:47)
[2018-05-09] MEDS: D5W-0.45 NACL + KCL 20 MEQ 1,000 ML IV (20:48)
[2018-05-09 20:56] LABS: HEMATOCRIT 31.7 % (37.0-47.0); HEMOGLOBIN 10.5 g/dl (12.0-16.0)
[2018-05-09] MEDS: ATORVASTATIN 40 MG TAB PO (21:00)
[2018-05-09 21:24] LABS: ANION GAP 14 (8-16); BLOOD UREA NITROGEN 12 mg/dl (7-20); CALCIUM 7.8 mg/dl (8.4-10.2); CARBON DIOXIDE 23 mmol/L (21-31); CHLORIDE 98 mmol/L (97-110); CREATININE 0.71 mg/dl (0.44-1.00); GLUCOSE 125 mg/dl (70-220); POTASSIUM 3.9 mmol/L (3.5-5.1); SODIUM 131 mmol/L (135-144)
[2018-05-09 21:26] LABS: AADO2 Arterial 252.1 mmHg (7.0-24.0); Arterial Base Excess -2.5 mmol/L (-3.0-3); Arterial Blood Gas Oxygen Sat 91.4 mmHG (95.0-98.0); Arterial COHb 0.3 % (0.0-3.0); Arterial Fraction of Oxyhgb 90.9 % (93.0-99.0); Arterial HCO3 21.7 mmol/L (22.0-26.0); Arterial MetHb 0.2 % (0.0-1.5); Arterial Total Hemglobin 11.4 g/dl (12.0-18.0); Arterial pCO2 35.4 mmhg (35-45); MODE VENT - AC; Site Right Brachial
[2018-05-09] MEDS ORDERED: NORepinephrine 8MG/250 ML (PMX 250 ML IV (21:30)
[2018-05-09] MEDS: SOD CHLORIDE 0.9% 1,000 ML IV (23:12)
[2018-05-09] MEDS: NORepinephrine 8MG/250 ML (PMX 250 ML IV (23:21)
[2018-05-09] MEDS: FENTAnyl (DRIP) 1000 mcg/100mL 100 ML IV (23:22)
[2018-05-10] MEDS: PROPOFOL 100 ML IV ×4 (00:45→20:30)
[2018-05-10] MEDS: METOCLOPRAMIDE 10 MG INJ IV ×5 (00:45→23:25)
[2018-05-10] MEDS: NS + KCL 20 MEQ 1,000 ML IV (02:00)
[2018-05-10] MEDS: D5W-0.45 NACL + KCL 20 MEQ 1,000 ML IV ×4 (04:09→23:25)
[2018-05-10] MEDS: PHENYLephrine 40 MG in DEXTROSE 5% 496 ML IV ×3 (04:13→14:24)
[2018-05-10] MEDS: SOD CHLORIDE 0.9% 1,000 ML IV ×2 (05:19→07:03)
[2018-05-10 05:39] LABS: ABNORMAL IP MESSAGE 1; HEMATOCRIT 30.6 % (37.0-47.0); HEMOGLOBIN 10.4 g/dl (12.0-16.0); MEAN CORPUSCULAR HEMOGLOBIN 31.3 pg (29.0-33.0); MEAN CORPUSCULAR VOLUME 92.2 fl (82.0-101.0); MEAN PLATELET VOLUME 10.5 fl (7.4-10.4); NUCLEATED RED BLOOD CELLS% 0.1 /100WBC (0.0-0.0); PLATELET COUNT 524 10^3/UL (140-415); RED BLOOD COUNT 3.32 10^6/ul (4.20-5.40); RED CELL DISTRIBUTION WIDTH 16.8 % (11.5-14.5)
[2018-05-10 05:39] LABS: WHITE BLOOD COUNT 41.1 10^3/ul (4.8-10.8)
[2018-05-10 05:46] LABS: ADD MAN DIFF? YES; POSITIVE DIFF @See below
[2018-05-10 06:09] LABS: INR 1.46; PT RATIO 1.4
[2018-05-10 06:10] LABS: ANION GAP 14 (8-16); BLOOD UREA NITROGEN 16 mg/dl (7-20); CALCIUM 7.4 mg/dl (8.4-10.2); CARBON DIOXIDE 22 mmol/L (21-31); CHLORIDE 100 mmol/L (97-110); CREATININE 1.15 mg/dl (0.44-1.00); GLUCOSE 171 mg/dl (70-220); SODIUM 132 mmol/L (135-144)
[2018-05-10 06:11] LABS: ANION GAP 14 (8-16); BLOOD UREA NITROGEN 16 mg/dl (7-20); CALCIUM 7.4 mg/dl (8.4-10.2); CARBON DIOXIDE 22 mmol/L (21-31); CHLORIDE 100 mmol/L (97-110); CREATININE 1.12 mg/dl (0.44-1.00); GLUCOSE 172 mg/dl (70-220); MAGNESIUM 1.4 mg/dl (1.7-2.5); PHOSPHORUS 4.1 mg/dl (2.5-4.9); SODIUM 132 mmol/L (135-144)
[2018-05-10] MEDS: PANTOPRAZOLE 40 MG INJ IV (06:20)
[2018-05-10] MEDS: PIPER-TAZO 3.375 GM IV (PMX) 100 ML IVPB ×5 (06:20→23:25)
[2018-05-10 07:12] LABS: ANISOCYTOSIS 2+ (0-0); BAND NEUTROPHILS #M 12.3 10^3/ul (0.0-0.6); BAND NEUTROPHILS % (M) 30 % (0-4); BURR CELLS 3+ (0-0); EOSINOPHILS % (M) 1 % (0-7); METAMYELOCYTES #M 0.4 10^3/ul (0.0-0.0); METAMYELOCYTES %M 1 % (0-0); MONOCYTE #M 0.8 10^3/ul (0.3-0.9); MONOCYTES % (M) 2 % (0-11); PLATELET ESTIMATE INCREASED; POIKILOCYTOSIS 3+ (0-0); POLYCHROMASIA 2+ (0-0); SEG NEUT #M 32.2 10^3/ul (1.6-7.5); SEGMENTED NEUTROPHILS (M) % 66 % (39-77); SMUDGE%M 5 % (0-0)
[2018-05-10] MEDS: FUROSEMIDE 20 MG INJ IV (08:24)
[2018-05-10] MEDS: ALBUMIN HUMAN 25% 100 ML IV ×2 (08:24→08:32)
[2018-05-10] MEDS: ASPIRIN 81 MG TAB PO (08:29)
[2018-05-10] MEDS: AMLODIPINE 10 MG TAB PO (08:29)
[2018-05-10] MEDS: METOPROLOL 25 MG TAB PO ×2 (08:29→21:00)
[2018-05-10] MEDS: TIOTROPIUM 18 MCG CAPSULE INHA DEV INH (08:30)
[2018-05-10] MEDS: TRIUMEQ PO (08:33)
[2018-05-10] MEDS: ENOXAPARIN 40 MG/0.4 ML SYG SC (08:39)
[2018-05-10 09:02] LABS: LACTIC ACID 1.5 mmol/L (0.5-2.0)
[2018-05-10 09:19] LABS: Arterial Base Excess -3.6 mmol/L (-3.0-3); Arterial Blood Gas Oxygen Sat 98.6 mmHG (95.0-98.0); Arterial COHb 0.3 % (0.0-3.0); Arterial Fraction of Oxyhgb 97.9 % (93.0-99.0); Arterial HCO3 20.5 mmol/L (22.0-26.0); Arterial MetHb 0.4 % (0.0-1.5); Arterial Total Hemglobin 9.4 g/dl (12.0-18.0); Arterial pCO2 33.4 mmhg (35-45); MODE VENT - AC; Site Right Brachial
[2018-05-10] MEDS: FENTAnyl (DRIP) 1000 mcg/100mL 100 ML IV (09:40)
[2018-05-10 11:50] LABS: LACTIC ACID 1.3 mmol/L (0.5-2.0)
[2018-05-10 12:09] LABS: ABNORMAL IP MESSAGE 1
[2018-05-10 12:14] LABS: ADD MAN DIFF? YES; POSITIVE DIFF @See below
[2018-05-10] MEDS: CASPOFUNGIN 70 MG in SOD CHLORIDE 0.9% 250 ML IVPB (13:06)
[2018-05-10 13:09] LABS: HEMOGLOBIN 7.1 g/dl (12.0-16.0); RED BLOOD COUNT 2.32 10^6/ul (4.20-5.40)
[2018-05-10 13:09] LABS: WHITE BLOOD COUNT 33.3 10^3/ul (4.8-10.8)
[2018-05-10 13:10] LABS: HEMATOCRIT 21.4 % (37.0-47.0); MEAN CORPUSCULAR HEMOGLOBIN 30.6 pg (29.0-33.0); MEAN CORPUSCULAR HGB CONC 33.2 g/dl (32.0-37.0); MEAN CORPUSCULAR VOLUME 92.2 fl (82.0-101.0)
[2018-05-10 13:11] LABS: NUCLEATED RED BLOOD CELLS% 0.1 /100WBC (0.0-0.0); PLATELET COUNT 389 10^3/UL (140-415)
[2018-05-10 14:07] LABS: BAND NEUTROPHILS #M 4.9 10^3/ul (0.0-0.6); BAND NEUTROPHILS % (M) 15 % (0-4); EOSINOPHILS % (M) 1 % (0-7); LYMPHOCYTES #M 0.3 10^3/ul (0.8-2.9); LYMPHOCYTES % (M) 1 % (15-51); MONOCYTE #M 0.3 10^3/ul (0.3-0.9); MONOCYTES % (M) 1 % (0-11); PLATELET ESTIMATE NORMAL; SEG NEUT #M 28.9 10^3/ul (1.6-7.5); SEGMENTED NEUTROPHILS (M) % 82 % (39-77); SMUDGE%M 1 % (0-0)
[2018-05-10 14:08] LABS: ANISOCYTOSIS 1+ (0-0); POLYCHROMASIA 3+ (0-0)
[2018-05-10 16:12] LABS: LACTIC ACID 1.6 mmol/L (0.5-2.0)
[2018-05-10] MEDS: FUROSEMIDE 40 MG INJ IV (17:22)
[2018-05-10] MEDS: ATORVASTATIN 40 MG TAB PO (21:00)
[2018-05-11] MEDS: FENTAnyl (DRIP) 1000 mcg/100mL 100 ML IV ×3 (01:19→21:02)
[2018-05-11 04:43] LABS: ADD MAN DIFF? NO
[2018-05-11 04:47] LABS: ABNORMAL IP MESSAGE 1; BASOPHIL # 0.1 10^3/ul (0.0-0.1); BASOPHILS % 0.2 % (0.0-2.0); EOSINOPHILS # 0.1 10^3/ul (0.0-0.5); EOSINOPHILS % 0.3 % (0.0-7.0); HEMATOCRIT 21.4 % (37.0-47.0); HEMOGLOBIN 7.2 g/dl (12.0-16.0); IMMATURE GRANS #M 0.96 10^3/ul; IMMATURE GRANS % (M) 3.7 %; LYMPHOCYTES % 3.7 % (15.0-51.0); MEAN CORPUSCULAR HEMOGLOBIN 30.3 pg (29.0-33.0); MEAN CORPUSCULAR HGB CONC 33.6 g/dl (32.0-37.0); MEAN CORPUSCULAR VOLUME 89.9 fl (82.0-101.0); MEAN PLATELET VOLUME 10.3 fl (7.4-10.4); MONOCYTE # 0.9 10^3/ul (0.3-0.9); MONOCYTES % 3.6 % (0.0-11.0); NEUTROPHIL # 23.3 10^3/ul (1.6-7.5); NEUTROPHILS % 88.5 % (39.0-77.0); NUCLEATED RED BLOOD CELLS% 0.1 /100WBC (0.0-0.0); PLATELET COUNT 351 10^3/UL (140-415); RED BLOOD COUNT 2.38 10^6/ul (4.20-5.40); RED CELL DISTRIBUTION WIDTH 16.5 % (11.5-14.5)
[2018-05-11 04:47] LABS: WHITE BLOOD COUNT 26.3 10^3/ul (4.8-10.8)
[2018-05-11 04:51] LABS: POSITIVE DIFF @See below
[2018-05-11 05:17] LABS: ALBUMIN 2.1 g/dl (3.3-4.9); ANION GAP 13 (8-16); BLOOD UREA NITROGEN 11 mg/dl (7-20); CALCIUM 7.5 mg/dl (8.4-10.2); CARBON DIOXIDE 23 mmol/L (21-31); CHLORIDE 94 mmol/L (97-110); CREATININE 1.05 mg/dl (0.44-1.00); GLUCOSE 360 mg/dl (70-220); MAGNESIUM 1.3 mg/dl (1.7-2.5); SODIUM 127 mmol/L (135-144)
[2018-05-11] MEDS: PROPOFOL 100 ML IV ×3 (05:19→21:00)
[2018-05-11] MEDS: METOCLOPRAMIDE 10 MG INJ IV ×4 (06:14→23:52)
[2018-05-11] MEDS: PANTOPRAZOLE 40 MG INJ IV (06:14)
[2018-05-11] MEDS: PIPER-TAZO 3.375 GM IV (PMX) 100 ML IVPB ×4 (06:14→23:52)
[2018-05-11] MEDS: FUROSEMIDE 40 MG INJ IV ×2 (06:19→17:08)
[2018-05-11] MEDS ORDERED: MAGNESIUM SULFATE 3 GM in DEXTROSE 5% 100 ML IVPB (06:30)
[2018-05-11] MEDS: POTASSIUM CHLORIDE 100 ML IVPB ×2 (06:32→08:23)
[2018-05-11] MEDS: MAGNESIUM SULFATE 1 GM/D5W 100 ML IVPB ×3 (06:32→09:16)
[2018-05-11] MEDS: ASPIRIN 81 MG TAB PO ×2 (09:00→09:53)
[2018-05-11] MEDS: TRIUMEQ PO ×2 (09:00→09:54)
[2018-05-11] MEDS: METOPROLOL 25 MG TAB PO ×2 (09:00→21:00)
[2018-05-11] MEDS: TIOTROPIUM 18 MCG CAPSULE INHA DEV INH (09:00)
[2018-05-11] MEDS: ENOXAPARIN 40 MG/0.4 ML SYG SC (09:22)
[2018-05-11] MEDS: D5W-0.45 NACL + KCL 20 MEQ 1,000 ML IV (11:47)
[2018-05-11] MEDS ORDERED: VANCOMYCIN IV PER PHARMACY XX (12:30)
[2018-05-11] MEDS: CASPOFUNGIN 50 MG in SOD CHLORIDE 0.9% 250 ML IVPB (12:51)
[2018-05-11] MEDS: VANCOMYCIN 2 GM in SOD CHLORIDE 0.9% 500 ML IVPB (14:24)
[2018-05-11] MEDS: ATORVASTATIN 40 MG TAB PO (21:00)
[2018-05-11] MEDS: HYDROmorphONE 0.5 MG/0.5 ML SYG IV (21:28)
[2018-05-11] MEDS: NS + KCL 20 MEQ 1,000 ML IV (22:40)
[2018-05-12] MEDS: HYDROmorphONE 0.5 MG/0.5 ML SYG IV ×7 (00:41→23:02)
[2018-05-12] MEDS: VANCOMYCIN 1 GM 250 ML IVPB ×2 (04:08→15:09)
[2018-05-12 04:41] LABS: ADD MAN DIFF? NO
[2018-05-12 04:46] LABS: WHITE BLOOD COUNT 22.9 10^3/ul (4.8-10.8)
[2018-05-12 04:46] LABS: BASOPHIL # 0.1 10^3/ul (0.0-0.1); BASOPHILS % 0.2 % (0.0-2.0); EOSINOPHILS # 0.2 10^3/ul (0.0-0.5); EOSINOPHILS % 0.9 % (0.0-7.0); HEMATOCRIT 20.5 % (37.0-47.0); IMMATURE GRANS #M 0.42 10^3/ul; IMMATURE GRANS % (M) 1.8 %; LYMPHOCYTES # 1.4 10^3/ul (0.8-2.9); LYMPHOCYTES % 6.3 % (15.0-51.0); MEAN CORPUSCULAR HEMOGLOBIN 30.6 pg (29.0-33.0); MEAN CORPUSCULAR HGB CONC 34.1 g/dl (32.0-37.0); MEAN CORPUSCULAR VOLUME 89.5 fl (82.0-101.0); MEAN PLATELET VOLUME 10.3 fl (7.4-10.4); MONOCYTE # 0.9 10^3/ul (0.3-0.9); MONOCYTES % 4.1 % (0.0-11.0); NEUTROPHIL # 19.9 10^3/ul (1.6-7.5); NEUTROPHILS % 86.7 % (39.0-77.0); PLATELET COUNT 329 10^3/UL (140-415); RED BLOOD COUNT 2.29 10^6/ul (4.20-5.40); RED CELL DISTRIBUTION WIDTH 16.4 % (11.5-14.5)
[2018-05-12 05:06] LABS: LACTIC ACID 1.2 mmol/L (0.5-2.0)
[2018-05-12 05:07] LABS: ALBUMIN 2.1 g/dl (3.3-4.9); ANION GAP 15 (8-16); BLOOD UREA NITROGEN 12 mg/dl (7-20); CALCIUM 7.7 mg/dl (8.4-10.2); CARBON DIOXIDE 26 mmol/L (21-31); CHLORIDE 98 mmol/L (97-110); CREATININE 0.94 mg/dl (0.44-1.00); GLUCOSE 183 mg/dl (70-220); MAGNESIUM 1.4 mg/dl (1.7-2.5); PHOSPHORUS 3.6 mg/dl (2.5-4.9); SODIUM 136 mmol/L (135-144)
[2018-05-12 05:10] LABS: POTASSIUM 2.8 mmol/L (3.5-5.1)
[2018-05-12 05:25] LABS: Allen Test ACCEPTAB; Arterial Base Excess 0.9 mmol/L (-3.0-3); Arterial Blood Gas Oxygen Sat 92.1 mmHG (95.0-98.0); Arterial COHb 0.4 % (0.0-3.0); Arterial Fraction of Oxyhgb 91.5 % (93.0-99.0); Arterial HCO3 25.3 mmol/L (22.0-26.0); Arterial MetHb 0.3 % (0.0-1.5); Arterial pCO2 39.1 mmhg (35-45); MODE VENT - AC; Site Right Radial
[2018-05-12] MEDS: PANTOPRAZOLE 40 MG INJ IV (06:04)
[2018-05-12] MEDS: PROPOFOL 100 ML IV ×3 (06:05→23:09)
[2018-05-12] MEDS: METOCLOPRAMIDE 10 MG INJ IV ×3 (06:05→17:09)
[2018-05-12] MEDS: PIPER-TAZO 3.375 GM IV (PMX) 100 ML IVPB ×3 (06:05→17:09)
[2018-05-12] MEDS: POTASSIUM CHLORIDE 50 ML IVPB ×3 (06:10→09:37)
[2018-05-12] MEDS: FUROSEMIDE 40 MG INJ IV (06:32)
[2018-05-12] MEDS: MAGNESIUM SULFATE 3 GM in DEXTROSE 5% 100 ML IVPB (06:49)
[2018-05-12] MEDS: METOPROLOL 25 MG TAB PO ×2 (08:02→21:00)
[2018-05-12] MEDS: TIOTROPIUM 18 MCG CAPSULE INHA DEV INH (08:02)
[2018-05-12] MEDS: ASPIRIN 81 MG TAB PO (08:08)
[2018-05-12] MEDS: ENOXAPARIN 40 MG/0.4 ML SYG SC (08:12)
[2018-05-12] MEDS: TRIUMEQ PO (08:13)
[2018-05-12] MEDS: FENTAnyl (DRIP) 1000 mcg/100mL 100 ML IV (08:18)
[2018-05-12] MEDS: NS + KCL 20 MEQ 1,000 ML IV (09:41)
[2018-05-12] MEDS: CASPOFUNGIN 50 MG in SOD CHLORIDE 0.9% 250 ML IVPB (12:12)
[2018-05-12 12:50] LABS: ALANINE AMINOTRANSFERASE 26 IU/L (13-69); ALBUMIN 2.3 g/dl (3.3-4.9); ALBUMIN/GLOBULIN RATIO 0.85; ALKALINE PHOSPHATASE 112 IU/L (42-121); ANION GAP 13 (8-16); ASPARTATE AMINO TRANSFERASE 31 IU/L (15-46); BILIRUBIN,INDIRECT 0.2 mg/dl (0-1.1); BILIRUBIN,TOTAL 0.2 mg/dl (0.2-1.3); BLOOD UREA NITROGEN 11 mg/dl (7-20); CALCIUM 7.9 mg/dl (8.4-10.2); CARBON DIOXIDE 26 mmol/L (21-31); CHLORIDE 98 mmol/L (97-110); CREATININE 0.88 mg/dl (0.44-1.00); GLUCOSE 242 mg/dl (70-220); PHOSPHORUS 3.8 mg/dl (2.5-4.9); POTASSIUM 3.3 mmol/L (3.5-5.1); SODIUM 134 mmol/L (135-144); TRIGLYCERIDES 274 mg/dl (0-149)
[2018-05-12] MEDS: ACCU-CHEK XX ×3 (13:00→21:00)
[2018-05-12 14:06] LABS: LYMPHOCYTE - % CD4 (HELPER) 25 % (30-61); LYMPHOCYTE - %CD8 (SUPPRESSOR) 41 % (12-42); LYMPHOCYTE - ABSOLUTE 1108 cells/uL (850-3900); LYMPHOCYTE - ABSOLUTE CD4 275 cells/uL (490-1740); LYMPHOCYTE - ABSOLUTE CD8 452 cells/uL (180-1170); LYMPHOCYTE - CD4/CD8 RATIO 0.61 (0.86-5.00)
[2018-05-12] MEDS: POTASSIUM CHLORIDE 20 MEQ POWDER FOR ORAL SOLN NGT (15:09)
[2018-05-12 17:22] LABS: IMMEDIATE SPIN CROSSMATCH 1 1
[2018-05-12] MEDS: TPN 1,000 ML IV (19:46)
[2018-05-12] MEDS: ATORVASTATIN 40 MG TAB PO (21:00)
[2018-05-13] MEDS: METOCLOPRAMIDE 10 MG INJ IV ×5 (00:04→23:35)
[2018-05-13] MEDS: PIPER-TAZO 3.375 GM IV (PMX) 100 ML IVPB ×5 (00:05→23:35)
[2018-05-13] MEDS: ACCU-CHEK XX (01:00)
[2018-05-13] MEDS: HYDROmorphONE 0.5 MG/0.5 ML SYG IV ×3 (03:24→13:46)
[2018-05-13 03:36] LABS: ADD MAN DIFF? NO
[2018-05-13 03:57] LABS: MAGNESIUM 1.9 mg/dl (1.7-2.5)
[2018-05-13 03:57] LABS: LACTIC ACID 1.5 mmol/L (0.5-2.0); PHOSPHORUS 2.9 mg/dl (2.5-4.9)
[2018-05-13 03:59] LABS: ANION GAP 13 (8-16); BLOOD UREA NITROGEN 12 mg/dl (7-20); CARBON DIOXIDE 26 mmol/L (21-31); CHLORIDE 103 mmol/L (97-110); CREATININE 0.85 mg/dl (0.44-1.00); GLUCOSE 244 mg/dl (70-220); POTASSIUM 3.3 mmol/L (3.5-5.1); SODIUM 139 mmol/L (135-144)
[2018-05-13 04:01] LABS: VANCOMYCIN,TROUGH 11.6 ug/ml (10.0-20.0)
[2018-05-13 04:02] LABS: BASOPHILS % 0.2 % (0.0-2.0); EOSINOPHILS # 0.1 10^3/ul (0.0-0.5); EOSINOPHILS % 0.7 % (0.0-7.0); HEMATOCRIT 22.1 % (37.0-47.0); HEMOGLOBIN 7.5 g/dl (12.0-16.0); IMMATURE GRANS #M 0.29 10^3/ul; IMMATURE GRANS % (M) 1.6 %; LYMPHOCYTES # 1.4 10^3/ul (0.8-2.9); LYMPHOCYTES % 7.5 % (15.0-51.0); MEAN CORPUSCULAR HGB CONC 33.9 g/dl (32.0-37.0); MEAN CORPUSCULAR VOLUME 91.3 fl (82.0-101.0); MEAN PLATELET VOLUME 10.6 fl (7.4-10.4); MONOCYTE # 0.9 10^3/ul (0.3-0.9); MONOCYTES % 4.8 % (0.0-11.0); NEUTROPHIL # 15.9 10^3/ul (1.6-7.5); NEUTROPHILS % 85.2 % (39.0-77.0); PLATELET COUNT 301 10^3/UL (140-415); RED BLOOD COUNT 2.42 10^6/ul (4.20-5.40); RED CELL DISTRIBUTION WIDTH 16.1 % (11.5-14.5)
[2018-05-13 04:02] LABS: WHITE BLOOD COUNT 18.7 10^3/ul (4.8-10.8)
[2018-05-13] MEDS: VANCOMYCIN 1 GM 250 ML IVPB (04:11)
[2018-05-13] MEDS ORDERED: GLUCAGON 1 MG INJ IM (05:30)
[2018-05-13] MEDS ORDERED: DEXTROSE 50% 50 ML SYRINGE IV ×2 (05:30)
[2018-05-13] MEDS ORDERED: GLUCOSE GEL 15 GRAM TUBE PO ×2 (05:30)
[2018-05-13] MEDS ORDERED: GLUCOSE GEL 15 GRAM TUBE BUCCAL (05:30)
[2018-05-13] MEDS ORDERED: MAGNESIUM SULFATE (GM) 50% 2 ML INJ IVPB (05:30)
[2018-05-13] MEDS: PANTOPRAZOLE 40 MG INJ IV (05:47)
[2018-05-13] MEDS: POTASSIUM CHLORIDE 50 ML IVPB ×2 (05:53→07:49)
[2018-05-13 05:56] LABS: AADO2 Arterial 172.4 mmHg (7.0-24.0); Allen Test ACCEPTAB; Arterial Base Excess 2.4 mmol/L (-3.0-3); Arterial Blood Gas Oxygen Sat 93.6 mmHG (95.0-98.0); Arterial COHb 0.4 % (0.0-3.0); Arterial Fraction of Oxyhgb 92.7 % (93.0-99.0); Arterial HCO3 26.3 mmol/L (22.0-26.0); Arterial MetHb 0.6 % (0.0-1.5); Arterial Total Hemglobin 6.7 g/dl (12.0-18.0); Arterial pCO2 37.8 mmhg (35-45); MODE VENT - AC; Site Right Radial
[2018-05-13] MEDS: MAGNESIUM SULFATE 1 GM/D5W 100 ML IVPB (06:21)
[2018-05-13] MEDS ORDERED: POTASSIUM CHLORIDE 100 ML IVPB (08:00)
[2018-05-13] MEDS: FUROSEMIDE 40 MG INJ IV (08:57)
[2018-05-13] MEDS: METOPROLOL 25 MG TAB PO ×2 (09:00→21:00)
[2018-05-13] MEDS: TRIUMEQ PO (09:00)
[2018-05-13] MEDS: ASPIRIN 81 MG TAB PO (09:00)
[2018-05-13] MEDS: TIOTROPIUM 18 MCG CAPSULE INHA DEV INH (09:00)
[2018-05-13] MEDS: ENOXAPARIN 40 MG/0.4 ML SYG SC (09:13)
[2018-05-13] MEDS: TPN 1,000 ML IV ×2 (09:44→21:22)
[2018-05-13] MEDS: PROPOFOL 100 ML IV (09:44)
[2018-05-13] MEDS: INSULIN ASPART [NOVOLOG] 3 ML PEN SC ×4 (10:17→21:15)
[2018-05-13 11:44] LABS: AADO2 Arterial 175.9 mmHg (7.0-24.0); Allen Test ACCEPTAB; Arterial Base Excess 2.7 mmol/L (-3.0-3); Arterial COHb 0.8 % (0.0-3.0); Arterial Fraction of Oxyhgb 91.9 % (93.0-99.0); Arterial HCO3 26.6 mmol/L (22.0-26.0); Arterial MetHb 0.4 % (0.0-1.5); Arterial Total Hemglobin 8.9 g/dl (12.0-18.0); Arterial pCO2 38.4 mmhg (35-45); Blood Gas PS 10; MODE VENT - CPAP; Site Right Radial
[2018-05-13] MEDS: CASPOFUNGIN 50 MG in SOD CHLORIDE 0.9% 250 ML IVPB (13:10)
[2018-05-13] MEDS: VANCOMYCIN 1.25 GM in SOD CHLORIDE 0.9% 250 ML IVPB (15:49)
[2018-05-13] MEDS: FENTAnyl 50 MCG/ML VIAL IV ×4 (18:00→23:58)
[2018-05-13] MEDS: ATORVASTATIN 40 MG TAB PO (21:00)
[2018-05-13] MEDS: LORAZEPAM 2 MG INJ IV (21:37)
[2018-05-13] MEDS: SOD CHLORIDE 0.9% 250 ML IV (23:34)
[2018-05-14] MEDS: ALBUMIN HUMAN 25% 100 ML IV (00:01)
[2018-05-14] MEDS: HYDROmorphONE 0.5 MG/0.5 ML SYG IV (00:40)
[2018-05-14] MEDS: INSULIN ASPART [NOVOLOG] 3 ML PEN SC ×6 (01:18→20:28)
[2018-05-14] MEDS: FUROSEMIDE 20 MG INJ IV ×2 (02:39→23:23)
[2018-05-14] MEDS: FENTAnyl 50 MCG/ML VIAL IV ×5 (02:46→13:01)
[2018-05-14 03:21] LABS: AADO2 Arterial 635.2 mmHg (7.0-24.0); Allen Test ACCEPTAB; Arterial Base Excess 3.7 mmol/L (-3.0-3); Arterial Blood Gas Oxygen Sat 80.5 mmHG (95.0-98.0); Arterial COHb 0.5 % (0.0-3.0); Arterial Fraction of Oxyhgb 79.9 % (93.0-99.0); Arterial HCO3 27.2 mmol/L (22.0-26.0); Arterial MetHb 0.3 % (0.0-1.5); Arterial Total Hemglobin 8.9 g/dl (12.0-18.0); Arterial pCO2 36.2 mmhg (35-45); MODE MASK - NRB; Site Left Radial
[2018-05-14] MEDS: VANCOMYCIN 1.25 GM in SOD CHLORIDE 0.9% 250 ML IVPB ×3 (03:58→22:03)
[2018-05-14] MEDS: METOCLOPRAMIDE 10 MG INJ IV ×4 (05:41→23:02)
[2018-05-14] MEDS: PIPER-TAZO 3.375 GM IV (PMX) 100 ML IVPB ×4 (05:41→23:02)
[2018-05-14] MEDS: PANTOPRAZOLE 40 MG INJ IV (05:41)
[2018-05-14 05:43] LABS: ANION GAP 14 (8-16); BLOOD UREA NITROGEN 13 mg/dl (7-20); CALCIUM 8.6 mg/dl (8.4-10.2); CARBON DIOXIDE 28 mmol/L (21-31); CHLORIDE 105 mmol/L (97-110); CREATININE 0.83 mg/dl (0.44-1.00); GLUCOSE 137 mg/dl (70-220); SODIUM 144 mmol/L (135-144)
[2018-05-14 05:47] LABS: PHOSPHORUS 2.6 mg/dl (2.5-4.9)
[2018-05-14 05:47] LABS: MAGNESIUM 1.7 mg/dl (1.7-2.5)
[2018-05-14 06:20] LABS: POTASSIUM 2.9 mmol/L (3.5-5.1)
[2018-05-14] MEDS ORDERED: POTASSIUM CHLORIDE 100 ML IVPB (07:30)
[2018-05-14 07:45] LABS: HEMATOCRIT 24.5 % (37.0-47.0); HEMOGLOBIN 8.1 g/dl (12.0-16.0); IMMATURE GRANS #M 0.28 10^3/ul; IMMATURE GRANS % (M) 1.4 %; MEAN CORPUSCULAR HEMOGLOBIN 31.3 pg (29.0-33.0); MEAN CORPUSCULAR HGB CONC 33.1 g/dl (32.0-37.0); MEAN CORPUSCULAR VOLUME 94.6 fl (82.0-101.0); MEAN PLATELET VOLUME 10.3 fl (7.4-10.4); NUCLEATED RED BLOOD CELLS% 0.1 /100WBC (0.0-0.0); PLATELET COUNT 286 10^3/UL (140-415); RED BLOOD COUNT 2.59 10^6/ul (4.20-5.40); RED CELL DISTRIBUTION WIDTH 16.4 % (11.5-14.5)
[2018-05-14 07:45] LABS: WHITE BLOOD COUNT 20.7 10^3/ul (4.8-10.8)
[2018-05-14 07:54] LABS: ADD MAN DIFF? YES; POSITIVE DIFF @See below
[2018-05-14] MEDS: MAGNESIUM SULFATE 2 GM/50 ML 50 ML IVPB (08:39)
[2018-05-14] MEDS: POTASSIUM CHLORIDE 50 ML IVPB ×2 (08:39→13:53)
[2018-05-14] MEDS: TIOTROPIUM 18 MCG CAPSULE INHA DEV INH (09:00)
[2018-05-14] MEDS: FUROSEMIDE 40 MG INJ IV (09:24)
[2018-05-14] MEDS: TRIUMEQ PO (09:25)
[2018-05-14] MEDS: METOPROLOL 25 MG TAB PO ×2 (09:25→20:20)
[2018-05-14] MEDS: ASPIRIN 81 MG TAB PO (09:25)
[2018-05-14] MEDS: ENOXAPARIN 40 MG/0.4 ML SYG SC (09:32)
[2018-05-14 09:58] LABS: ANISOCYTOSIS 1+ (0-0); BAND NEUTROPHILS #M 0.2 10^3/ul (0.0-0.6); BAND NEUTROPHILS % (M) 1 % (0-4); EOSINOPHILS % (M) 2 % (0-7); LYMPHOCYTES % (M) 5 % (15-51); MONOCYTE #M 0.8 10^3/ul (0.3-0.9); MONOCYTES % (M) 4 % (0-11); PLATELET ESTIMATE NORMAL; POLYCHROMASIA 3+ (0-0); SEG NEUT #M 18.3 10^3/ul (1.6-7.5); SEGMENTED NEUTROPHILS (M) % 88 % (39-77); SMUDGE%M 17 % (0-0); TARGET CELLS 1+ (0-0)
[2018-05-14] MEDS: TPN 1,000 ML IV ×3 (10:25→22:03)
[2018-05-14] MEDS: CASPOFUNGIN 50 MG in SOD CHLORIDE 0.9% 250 ML IVPB (13:53)
[2018-05-14] MEDS: HYDROmorphONE 0.2 MG/ML PCA IV (14:56)
[2018-05-14] MEDS: ATORVASTATIN 40 MG TAB PO (20:19)
[2018-05-14] MEDS: INSULIN GLARGINE [LANTus] (100 UNITS/ML) SYG SC (20:35)
[2018-05-14] MEDS: ZOLPIDEM 5 MG TAB PO (20:41)
[2018-05-14] MEDS: LORAZEPAM 2 MG INJ IV ×2 (21:57→23:26)
[2018-05-14 22:47] LABS: AADO2 Arterial 632.7 mmHg (7.0-24.0); Allen Test ACCEPTAB; Arterial Base Excess 2.5 mmol/L (-3.0-3); Arterial Blood Gas Oxygen Sat 79.9 mmHG (95.0-98.0); Arterial COHb 0.5 % (0.0-3.0); Arterial Fraction of Oxyhgb 79.4 % (93.0-99.0); Arterial HCO3 26.3 mmol/L (22.0-26.0); Arterial MetHb 0.1 % (0.0-1.5); Arterial Total Hemglobin 11.5 g/dl (12.0-18.0); Arterial pCO2 37.8 mmhg (35-45); Blood Gas IEPAP 15/5; MODE MASK - BIPAP; Site Right Radial
[2018-05-15] MEDS: INSULIN ASPART [NOVOLOG] 3 ML PEN SC ×6 (01:00→20:39)
[2018-05-15 01:16] LABS: POTASSIUM 4.8 mmol/L (3.5-5.1)
[2018-05-15] MEDS: PROPOFOL 100 ML IV ×5 (02:30→21:48)
[2018-05-15] MEDS ORDERED: MIDAZOLAM (DRIP) 50 mg/50 mL 50 ML IV (03:00)
[2018-05-15] MEDS: VANCOMYCIN 1.25 GM in SOD CHLORIDE 0.9% 250 ML IVPB ×2 (03:10→17:01)
[2018-05-15 03:45] LABS: AADO2 Arterial 598.4 mmHg (7.0-24.0); Allen Test ACCEPTAB; Arterial Base Excess 2.9 mmol/L (-3.0-3); Arterial Blood Gas Oxygen Sat 95.3 mmHG (95.0-98.0); Arterial COHb 0.8 % (0.0-3.0); Arterial Fraction of Oxyhgb 94.4 % (93.0-99.0); Arterial HCO3 26.5 mmol/L (22.0-26.0); Arterial MetHb 0.1 % (0.0-1.5); Arterial Total Hemglobin 8.2 g/dl (12.0-18.0); Arterial pCO2 36.6 mmhg (35-45); MODE VENT - AC; Site Right Radial
[2018-05-15 05:15] LABS: ABNORMAL IP MESSAGE 1; HEMATOCRIT 23.7 % (37.0-47.0); HEMOGLOBIN 7.8 g/dl (12.0-16.0); IMMATURE GRANS #M 0.45 10^3/ul; IMMATURE GRANS % (M) 1.8 %; MEAN CORPUSCULAR HEMOGLOBIN 30.7 pg (29.0-33.0); MEAN CORPUSCULAR HGB CONC 32.9 g/dl (32.0-37.0); MEAN CORPUSCULAR VOLUME 93.3 fl (82.0-101.0); MEAN PLATELET VOLUME 10.7 fl (7.4-10.4); PLATELET COUNT 288 10^3/UL (140-415); RED BLOOD COUNT 2.54 10^6/ul (4.20-5.40); RED CELL DISTRIBUTION WIDTH 16.2 % (11.5-14.5)
[2018-05-15 05:25] LABS: POSITIVE DIFF @See below
[2018-05-15 05:26] LABS: ADD MAN DIFF? YES
[2018-05-15 05:27] LABS: TRIGLYCERIDES 450 mg/dl (0-149)
[2018-05-15 05:32] LABS: ANION GAP 11 (8-16); BLOOD UREA NITROGEN 13 mg/dl (7-20); CALCIUM 8.5 mg/dl (8.4-10.2); CARBON DIOXIDE 28 mmol/L (21-31); CHLORIDE 106 mmol/L (97-110); CREATININE 0.77 mg/dl (0.44-1.00); GLUCOSE 172 mg/dl (70-220); MAGNESIUM 1.8 mg/dl (1.7-2.5); PHOSPHORUS 2.4 mg/dl (2.5-4.9); POTASSIUM 3.1 mmol/L (3.5-5.1); SODIUM 142 mmol/L (135-144)
[2018-05-15] MEDS: PANTOPRAZOLE 40 MG INJ IV (06:53)
[2018-05-15] MEDS: METOCLOPRAMIDE 10 MG INJ IV ×3 (06:53→17:04)
[2018-05-15] MEDS: PIPER-TAZO 3.375 GM IV (PMX) 100 ML IVPB ×3 (06:54→18:17)
[2018-05-15 07:30] LABS: AADO2 Arterial 589.6 mmHg (7.0-24.0); Allen Test ACCEPTAB; Arterial Base Excess 1.5 mmol/L (-3.0-3); Arterial Blood Gas Oxygen Sat 96.8 mmHG (95.0-98.0); Arterial COHb 0.7 % (0.0-3.0); Arterial Fraction of Oxyhgb 95.9 % (93.0-99.0); Arterial MetHb 0.2 % (0.0-1.5); Arterial Total Hemglobin 8.2 g/dl (12.0-18.0); Arterial pCO2 34.8 mmhg (35-45); MODE VENT - AC; Site Right Radial
[2018-05-15 07:47] LABS: ANISOCYTOSIS 2+ (0-0); BAND NEUTROPHILS #M 2.2 10^3/ul (0.0-0.6); BAND NEUTROPHILS % (M) 9 % (0-4); EOSINOPHILS % (M) 3 % (0-7); GIANT THROMBO% (M) 1 % (0-0); LYMPHOCYTES #M 0.5 10^3/ul (0.8-2.9); LYMPHOCYTES % (M) 2 % (15-51); PLASMA CELLS #M 0.2 10^3/ul (0.0-0.0); PLASMAC%(M) 1 % (0); PLATELET ESTIMATE NORMAL; POLYCHROMASIA 3+ (0-0); REACTIVE LYMPHOCYTES #M 0.5 10^3/ul (0.0-0.0); REACTIVE LYMPHOCYTES% (M) 2 % (0-0); SEG NEUT #M 21.3 10^3/ul (1.6-7.5); SEGMENTED NEUTROPHILS (M) % 83 % (39-77); SMUDGE%M 21 % (0-0); TARGET CELLS 1+ (0-0)
[2018-05-15] MEDS: METOPROLOL 25 MG TAB PO ×2 (09:00→20:37)
[2018-05-15] MEDS: TIOTROPIUM 18 MCG CAPSULE INHA DEV INH (09:00)
[2018-05-15] MEDS: FUROSEMIDE 40 MG INJ IV (10:09)
[2018-05-15] MEDS: ASPIRIN 81 MG TAB PO (10:09)
[2018-05-15] MEDS: TRIUMEQ PO (10:10)
[2018-05-15] MEDS: ENOXAPARIN 40 MG/0.4 ML SYG SC (10:13)
[2018-05-15] MEDS: POTASSIUM CHLORIDE 50 ML IVPB ×3 (10:13→12:58)
[2018-05-15] MEDS: TPN 1,000 ML IV (10:29)
[2018-05-15] MEDS ORDERED: FENTAnyl PATCH 12 MCG/HR TRANSDERM (10:30)
[2018-05-15] MEDS: POTASSIUM PHOSPHATE 15 MM in SOD CHLORIDE 0.9% 250 ML IV (11:26)
[2018-05-15] MEDS: FENTAnyl (DRIP) 1000 mcg/100mL 100 ML IV (13:32)
[2018-05-15] MEDS: CASPOFUNGIN 50 MG in SOD CHLORIDE 0.9% 250 ML IVPB (15:10)
[2018-05-15 15:57] LABS: VANCOMYCIN,TROUGH 11.6 ug/ml (10.0-20.0)
[2018-05-15] MEDS: ATORVASTATIN 40 MG TAB PO (20:37)
[2018-05-15] MEDS: INSULIN GLARGINE [LANTus] (100 UNITS/ML) SYG SC (20:38)
[2018-05-16] MEDS: METOCLOPRAMIDE 10 MG INJ IV ×4 (00:15→17:58)
[2018-05-16] MEDS: TPN 1,000 ML IV ×3 (00:15→20:29)
[2018-05-16] MEDS: PIPER-TAZO 3.375 GM IV (PMX) 100 ML IVPB ×4 (00:15→17:58)
[2018-05-16] MEDS: FENTAnyl (DRIP) 1000 mcg/100mL 100 ML IV ×4 (00:16→22:38)
[2018-05-16] MEDS: INSULIN ASPART [NOVOLOG] 3 ML PEN SC ×6 (00:49→20:32)
[2018-05-16 01:24] LABS: ANION GAP 11 (8-16); BLOOD UREA NITROGEN 14 mg/dl (7-20); CALCIUM 8.6 mg/dl (8.4-10.2); CARBON DIOXIDE 25 mmol/L (21-31); CHLORIDE 113 mmol/L (97-110); CREATININE 0.83 mg/dl (0.44-1.00); GLUCOSE 135 mg/dl (70-220); POTASSIUM 3.3 mmol/L (3.5-5.1); SODIUM 146 mmol/L (135-144)
[2018-05-16] MEDS: POTASSIUM CHLORIDE 50 ML IVPB ×4 (01:36→09:49)
[2018-05-16] MEDS: PROPOFOL 100 ML IV ×4 (03:00→18:23)
[2018-05-16] MEDS: VANCOMYCIN 1.25 GM in SOD CHLORIDE 0.9% 250 ML IVPB (04:51)
[2018-05-16] MEDS: PANTOPRAZOLE 40 MG INJ IV (05:22)
[2018-05-16 05:32] LABS: ANION GAP 8 (8-16); BLOOD UREA NITROGEN 15 mg/dl (7-20); CALCIUM 8.7 mg/dl (8.4-10.2); CARBON DIOXIDE 28 mmol/L (21-31); CHLORIDE 112 mmol/L (97-110); CREATININE 0.85 mg/dl (0.44-1.00); GLUCOSE 126 mg/dl (70-220); POTASSIUM 3.7 mmol/L (3.5-5.1); SODIUM 144 mmol/L (135-144)
[2018-05-16] MEDS: ASPIRIN 81 MG TAB PO (08:33)
[2018-05-16] MEDS: TRIUMEQ PO (08:33)
[2018-05-16] MEDS: FUROSEMIDE 40 MG INJ IV (08:33)
[2018-05-16] MEDS: ENOXAPARIN 40 MG/0.4 ML SYG SC (08:39)
[2018-05-16] MEDS: TIOTROPIUM 18 MCG CAPSULE INHA DEV INH (08:41)
[2018-05-16] MEDS: METOPROLOL 25 MG TAB PO ×2 (08:41→20:34)
[2018-05-16 09:30] LABS: POTASSIUM 3.9 mmol/L (3.5-5.1)
[2018-05-16] MEDS: SOD CHLORIDE 0.9% 100 ML (13:37)
[2018-05-16] MEDS: IOHEXOL 300MG/ML 150 ML BTL (13:37)
[2018-05-16] MEDS: CASPOFUNGIN 50 MG in SOD CHLORIDE 0.9% 250 ML IVPB (13:43)
[2018-05-16] MEDS: VANCOMYCIN 1.5 GM in SOD CHLORIDE 0.9% 250 ML IVPB (16:31)
[2018-05-16 18:37] LABS: WHITE BLOOD COUNT 13.8 10^3/ul (4.8-10.8)
[2018-05-16 18:37] LABS: ABNORMAL IP MESSAGE 1; HEMATOCRIT 19.6 % (37.0-47.0); MEAN CORPUSCULAR HEMOGLOBIN 31.7 pg (29.0-33.0); MEAN CORPUSCULAR HGB CONC 33.2 g/dl (32.0-37.0); MEAN CORPUSCULAR VOLUME 95.6 fl (82.0-101.0); MEAN PLATELET VOLUME 11.1 fl (7.4-10.4); NUCLEATED RED BLOOD CELLS% 0.2 /100WBC (0.0-0.0); PLATELET COUNT 275 10^3/UL (140-415); RED BLOOD COUNT 2.05 10^6/ul (4.20-5.40); RED CELL DISTRIBUTION WIDTH 17.2 % (11.5-14.5)
[2018-05-16 19:17] LABS: HEMOGLOBIN 6.5 g/dl (12.0-16.0); POSITIVE DIFF @See below
[2018-05-16 19:18] LABS: ADD MAN DIFF? YES
[2018-05-16 19:29] LABS: ANISOCYTOSIS 3+ (0-0); BASOPHIL #M 0.1 10^3/ul (0.0-0.0); BASOPHILS % (M) 1 % (0-2); EOSINOPHILS % (M) 2 % (0-7); LYMPHOCYTES #M 4.1 10^3/ul (0.8-2.9); LYMPHOCYTES % (M) 30 % (15-51); MICROCYTOSIS 1+ (0-0); MONOCYTE #M 0.4 10^3/ul (0.3-0.9); MONOCYTES % (M) 3 % (0-11); PLATELET ESTIMATE NORMAL; POIKILOCYTOSIS 2+ (0-0); POLYCHROMASIA 2+ (0-0); ROULEAU 3+ (0-0); SEGMENTED NEUTROPHILS (M) % 64 % (39-77); SMUDGE%M 2 % (0-0)
[2018-05-16] MEDS: INSULIN GLARGINE [LANTus] (100 UNITS/ML) SYG SC (20:27)
[2018-05-16] MEDS: ATORVASTATIN 40 MG TAB PO (20:32)
[2018-05-16] MEDS: ACETAMINOPHEN 325 MG TAB PO (20:44)
[2018-05-16 23:42] LABS: IMMEDIATE SPIN CROSSMATCH 1 2
[2018-05-17] MEDS: METOCLOPRAMIDE 10 MG INJ IV ×4 (00:35→18:19)
[2018-05-17] MEDS: PIPER-TAZO 3.375 GM IV (PMX) 100 ML IVPB ×4 (00:35→20:09)
[2018-05-17] MEDS: INSULIN ASPART [NOVOLOG] 3 ML PEN SC ×6 (00:36→20:17)
[2018-05-17] MEDS: VANCOMYCIN 1.5 GM in SOD CHLORIDE 0.9% 250 ML IVPB ×2 (04:05→17:07)
[2018-05-17] MEDS: PROPOFOL 100 ML IV ×3 (04:09→20:59)
[2018-05-17 05:14] LABS: WHITE BLOOD COUNT 11.8 10^3/ul (4.8-10.8)
[2018-05-17 05:14] LABS: HEMATOCRIT 23.6 % (37.0-47.0); HEMOGLOBIN 7.5 g/dl (12.0-16.0); MEAN CORPUSCULAR HEMOGLOBIN 31.1 pg (29.0-33.0); MEAN CORPUSCULAR HGB CONC 31.8 g/dl (32.0-37.0); MEAN CORPUSCULAR VOLUME 97.9 fl (82.0-101.0); MEAN PLATELET VOLUME 11.7 fl (7.4-10.4); PLATELET COUNT 252 10^3/UL (140-415); RED BLOOD COUNT 2.41 10^6/ul (4.20-5.40); RED CELL DISTRIBUTION WIDTH 17.2 % (11.5-14.5)
[2018-05-17 05:31] LABS: POSITIVE DIFF @See below
[2018-05-17 05:32] LABS: ADD MAN DIFF? YES
[2018-05-17] MEDS: PANTOPRAZOLE 40 MG INJ IV (05:39)
[2018-05-17 05:54] LABS: ANION GAP 13 (8-16); BLOOD UREA NITROGEN 12 mg/dl (7-20); CALCIUM 8.1 mg/dl (8.4-10.2); CARBON DIOXIDE 20 mmol/L (21-31); CHLORIDE 113 mmol/L (97-110); CREATININE 1.04 mg/dl (0.44-1.00); MAGNESIUM 2.8 mg/dl (1.7-2.5); PHOSPHORUS 8.6 mg/dl (2.5-4.9); SODIUM 138 mmol/L (135-144)
[2018-05-17 05:58] LABS: POTASSIUM 8.1 mmol/L (3.5-5.1)
[2018-05-17 06:04] LABS: GLUCOSE 1002 mg/dl (70-220)
[2018-05-17 06:42] LABS: ANISOCYTOSIS 1+ (0-0); BAND NEUTROPHILS #M 0.2 10^3/ul (0.0-0.6); BAND NEUTROPHILS % (M) 2 % (0-4); EOSINOPHILS % (M) 2 % (0-7); GIANT THROMBO% (M) 1 % (0-0); LYMPHOCYTES #M 1.2 10^3/ul (0.8-2.9); LYMPHOCYTES % (M) 11 % (15-51); MONOCYTE #M 0.1 10^3/ul (0.3-0.9); MONOCYTES % (M) 1 % (0-11); PLATELET ESTIMATE NORMAL; POLYCHROMASIA 2+ (0-0); REACTIVE LYMPHOCYTES #M 0.1 10^3/ul (0.0-0.0); REACTIVE LYMPHOCYTES% (M) 1 % (0-0); SEG NEUT #M 9.8 10^3/ul (1.6-7.5); SEGMENTED NEUTROPHILS (M) % 83 % (39-77); SMUDGE%M 14 % (0-0); TARGET CELLS 1+ (0-0)
[2018-05-17 06:58] LABS: ANION GAP 12 (8-16); BLOOD UREA NITROGEN 15 mg/dl (7-20); CALCIUM 8.8 mg/dl (8.4-10.2); CARBON DIOXIDE 22 mmol/L (21-31); CHLORIDE 116 mmol/L (97-110); GLUCOSE 128 mg/dl (70-220); POTASSIUM 3.9 mmol/L (3.5-5.1); SODIUM 146 mmol/L (135-144)
[2018-05-17] MEDS: FENTAnyl (DRIP) 1000 mcg/100mL 100 ML IV ×2 (07:43→15:25)
[2018-05-17 07:51] LABS: AADO2 Arterial 163.2 mmHg (7.0-24.0); Allen Test ACCEPTAB; Arterial Base Excess -3.7 mmol/L (-3.0-3); Arterial Blood Gas Oxygen Sat 96.1 mmHG (95.0-98.0); Arterial COHb 0.9 % (0.0-3.0); Arterial HCO3 20.7 mmol/L (22.0-26.0); Arterial MetHb 0.2 % (0.0-1.5); Arterial pCO2 34.3 mmhg (35-45); MODE VENT - AC; Site Right Radial
[2018-05-17] MEDS: TIOTROPIUM 18 MCG CAPSULE INHA DEV INH (09:00)
[2018-05-17] MEDS: TRIUMEQ PO (09:21)
[2018-05-17] MEDS: ASPIRIN 81 MG TAB PO (09:22)
[2018-05-17] MEDS: METOPROLOL 25 MG TAB PO ×2 (09:23→20:16)
[2018-05-17] MEDS: FUROSEMIDE 40 MG INJ IV (09:24)
[2018-05-17] MEDS: ENOXAPARIN 40 MG/0.4 ML SYG SC (09:28)
[2018-05-17] MEDS: TPN 1,000 ML IV ×2 (09:30→11:23)
[2018-05-17 09:48] LABS: PHOSPHORUS 5.4 mg/dl (2.5-4.9)
[2018-05-17 09:48] LABS: MAGNESIUM 2.2 mg/dl (1.7-2.5)
[2018-05-17 09:50] LABS: IRON 34 ug/dl (35-150)
[2018-05-17 09:51] LABS: CHOLESTEROL 79 mg/dl (100-200); LACTATE DEHYDROGENASE 946 IU/L (313-618)
[2018-05-17 09:51] LABS: BILIRUBIN,INDIRECT 0.4 mg/dl (0-1.1); BILIRUBIN,TOTAL 0.7 mg/dl (0.2-1.3); CHOL/HDL RATIO 6.5 RATIO; HDL CHOLESTEROL 12 mg/dl (37-92); LDL CHOLESTEROL,CALCULATED 28 mg/dl; TRIGLYCERIDES 196 mg/dl (0-149)
[2018-05-17 09:59] LABS: % IRON SATURATION 19 % SAT (22-52); TOTAL IRON BINDING CAPACITY 178 ug/dl (241-421)
[2018-05-17 10:26] LABS: FERRITIN 85.3 ng/ml (11.1-264.0)
[2018-05-17] MEDS: CASPOFUNGIN 50 MG in SOD CHLORIDE 0.9% 250 ML IVPB (13:19)
[2018-05-17] MEDS: POTASSIUM CHLORIDE 50 ML IVPB (15:27)
[2018-05-17 18:47] LABS: HEMOGLOBIN 8.1 g/dl (12.0-16.0)
[2018-05-17 18:48] LABS: HEMATOCRIT 24.8 % (37.0-47.0)
[2018-05-17 19:08] LABS: OCCULT BLOOD STOOL NEGATIVE (NEGATIVE)
[2018-05-17] MEDS: ATORVASTATIN 40 MG TAB PO (20:16)
[2018-05-17] MEDS: INSULIN GLARGINE [LANTus] (100 UNITS/ML) SYG SC (20:25)
[2018-05-18] MEDS: FENTAnyl (DRIP) 1000 mcg/100mL 100 ML IV ×3 (00:24→19:11)
[2018-05-18] MEDS: METOCLOPRAMIDE 10 MG INJ IV ×5 (00:25→23:43)
[2018-05-18] MEDS: TPN 1,000 ML IV ×2 (00:25→22:35)
[2018-05-18] MEDS: PIPER-TAZO 3.375 GM IV (PMX) 100 ML IVPB ×5 (00:30→23:43)
[2018-05-18] MEDS: INSULIN ASPART [NOVOLOG] 3 ML PEN SC ×6 (01:00→20:33)
[2018-05-18 03:19] LABS: WHITE BLOOD COUNT 11.4 10^3/ul (4.8-10.8)
[2018-05-18 03:19] LABS: HEMOGLOBIN 7.8 g/dl (12.0-16.0); MEAN CORPUSCULAR HEMOGLOBIN 31.7 pg (29.0-33.0); MEAN CORPUSCULAR HGB CONC 33.9 g/dl (32.0-37.0); MEAN CORPUSCULAR VOLUME 93.5 fl (82.0-101.0); MEAN PLATELET VOLUME 11.5 fl (7.4-10.4); PLATELET COUNT 294 10^3/UL (140-415); RED BLOOD COUNT 2.46 10^6/ul (4.20-5.40)
[2018-05-18 03:41] LABS: ADD MAN DIFF? YES; POSITIVE DIFF @See below
[2018-05-18 03:47] LABS: ANION GAP 11 (8-16); BLOOD UREA NITROGEN 14 mg/dl (7-20); CALCIUM 8.5 mg/dl (8.4-10.2); CARBON DIOXIDE 22 mmol/L (21-31); CHLORIDE 112 mmol/L (97-110); CREATININE 0.79 mg/dl (0.44-1.00); GLUCOSE 116 mg/dl (70-220); MAGNESIUM 1.8 mg/dl (1.7-2.5); PHOSPHORUS 4.1 mg/dl (2.5-4.9); POTASSIUM 3.4 mmol/L (3.5-5.1); SODIUM 142 mmol/L (135-144)
[2018-05-18 03:49] LABS: VANCOMYCIN,TROUGH 16.4 ug/ml (10.0-20.0)
[2018-05-18] MEDS: VANCOMYCIN 1.5 GM in SOD CHLORIDE 0.9% 250 ML IVPB ×2 (03:58→18:13)
[2018-05-18] MEDS: POTASSIUM CHLORIDE 50 ML IVPB ×2 (04:41→05:55)
[2018-05-18 05:47] LABS: ANISOCYTOSIS 1+ (0-0); BAND NEUTROPHILS #M 1.2 10^3/ul (0.0-0.6); BAND NEUTROPHILS % (M) 11 % (0-4); EOSINOPHILS % (M) 2 % (0-7); GIANT THROMBO% (M) 4 % (0-0); LYMPHOCYTES #M 0.5 10^3/ul (0.8-2.9); LYMPHOCYTES % (M) 5 % (15-51); MONOCYTE #M 0.1 10^3/ul (0.3-0.9); MONOCYTES % (M) 1 % (0-11); PLATELET ESTIMATE NORMAL; POIKILOCYTOSIS 1+ (0-0); POLYCHROMASIA 1+ (0-0); SEG NEUT #M 9.5 10^3/ul (1.6-7.5); SEGMENTED NEUTROPHILS (M) % 82 % (39-77); SMUDGE%M 48 % (0-0)
[2018-05-18] MEDS: PANTOPRAZOLE 40 MG INJ IV (06:29)
[2018-05-18] MEDS: PROPOFOL 100 ML IV ×4 (06:38→22:33)
[2018-05-18 08:19] LABS: AADO2 Arterial 171.3 mmHg (7.0-24.0); Allen Test ACCEPTAB; Arterial Base Excess -1.5 mmol/L (-3.0-3); Arterial Blood Gas Oxygen Sat 95.7 mmHG (95.0-98.0); Arterial COHb 1.3 % (0.0-3.0); Arterial Fraction of Oxyhgb 94.1 % (93.0-99.0); Arterial HCO3 22.3 mmol/L (22.0-26.0); Arterial MetHb 0.4 % (0.0-1.5); Arterial Total Hemglobin 6.3 g/dl (12.0-18.0); Arterial pCO2 32.9 mmhg (35-45); MODE VENT - AC; Site Right Radial
[2018-05-18] MEDS: TIOTROPIUM 18 MCG CAPSULE INHA DEV INH (08:49)
[2018-05-18] MEDS: METOPROLOL 25 MG TAB PO ×2 (09:41→20:33)
[2018-05-18] MEDS: FUROSEMIDE 40 MG INJ IV (09:41)
[2018-05-18] MEDS: TRIUMEQ PO (09:42)
[2018-05-18] MEDS: ASPIRIN 81 MG TAB PO (09:42)
[2018-05-18] MEDS: ENOXAPARIN 40 MG/0.4 ML SYG SC (09:55)
[2018-05-18] MEDS: CASPOFUNGIN 50 MG in SOD CHLORIDE 0.9% 250 ML IVPB (14:19)
[2018-05-18 17:21] LABS: HAPTOGLOBIN 518 mg/dL (43-212)
[2018-05-18] MEDS: ATORVASTATIN 40 MG TAB PO (20:33)
[2018-05-18] MEDS: INSULIN GLARGINE [LANTus] (100 UNITS/ML) SYG SC (20:33)
[2018-05-18] MEDS: LORAZEPAM 2 MG INJ IV (23:40)
[2018-05-19] MEDS: INSULIN ASPART [NOVOLOG] 3 ML PEN SC ×6 (01:00→20:20)
[2018-05-19] MEDS: FENTAnyl (DRIP) 1000 mcg/100mL 100 ML IV ×3 (03:25→18:17)
[2018-05-19] MEDS: PROPOFOL 100 ML IV ×4 (03:25→22:44)
[2018-05-19] MEDS: VANCOMYCIN 1.5 GM in SOD CHLORIDE 0.9% 250 ML IVPB ×2 (03:30→16:46)
[2018-05-19] MEDS: METOCLOPRAMIDE 10 MG INJ IV ×3 (05:04→18:06)
[2018-05-19] MEDS: PANTOPRAZOLE 40 MG INJ IV (05:04)
[2018-05-19 05:33] LABS: HEMATOCRIT 24.7 % (37.0-47.0); HEMOGLOBIN 7.9 g/dl (12.0-16.0); MEAN CORPUSCULAR HEMOGLOBIN 29.9 pg (29.0-33.0); MEAN CORPUSCULAR VOLUME 93.6 fl (82.0-101.0); MEAN PLATELET VOLUME 11.3 fl (7.4-10.4); PLATELET COUNT 327 10^3/UL (140-415); RED BLOOD COUNT 2.64 10^6/ul (4.20-5.40); RED CELL DISTRIBUTION WIDTH 16.7 % (11.5-14.5)
[2018-05-19 06:03] LABS: ADD MAN DIFF? YES; POSITIVE DIFF @See below
[2018-05-19 06:05] LABS: ANION GAP 10 (8-16); BLOOD UREA NITROGEN 12 mg/dl (7-20); CARBON DIOXIDE 26 mmol/L (21-31); CHLORIDE 110 mmol/L (97-110); CREATININE 0.83 mg/dl (0.44-1.00); GLUCOSE 105 mg/dl (70-220); MAGNESIUM 1.7 mg/dl (1.7-2.5); PHOSPHORUS 5.6 mg/dl (2.5-4.9); POTASSIUM 3.2 mmol/L (3.5-5.1); SODIUM 143 mmol/L (135-144)
[2018-05-19 06:15] LABS: PREALBUMIN 10.7 mg/dl (17.6-36.0)
[2018-05-19] MEDS: PIPER-TAZO 3.375 GM IV (PMX) 100 ML IVPB ×3 (06:38→18:06)
[2018-05-19] MEDS: POTASSIUM CHLORIDE 50 ML IVPB ×6 (06:38→23:08)
[2018-05-19 07:54] LABS: ANISOCYTOSIS 1+ (0-0); EOSINOPHILS % (M) 2 % (0-7); GIANT THROMBO% (M) 3 % (0-0); LYMPHOCYTES #M 0.9 10^3/ul (0.8-2.9); LYMPHOCYTES % (M) 9 % (15-51); MONOCYTE #M 0.1 10^3/ul (0.3-0.9); MONOCYTES % (M) 1 % (0-11); PLATELET ESTIMATE NORMAL; POLYCHROMASIA 1+ (0-0); SEGMENTED NEUTROPHILS (M) % 88 % (39-77); SMUDGE%M 9 % (0-0)
[2018-05-19] MEDS: TRIUMEQ PO (09:00)
[2018-05-19] MEDS: ASPIRIN 81 MG TAB PO (09:06)
[2018-05-19] MEDS: METOPROLOL 25 MG TAB PO ×2 (09:07→20:20)
[2018-05-19] MEDS: ENOXAPARIN 40 MG/0.4 ML SYG SC (09:09)
[2018-05-19] MEDS: TPN 1,000 ML IV (11:52)
[2018-05-19] MEDS: CASPOFUNGIN 50 MG in SOD CHLORIDE 0.9% 250 ML IVPB (13:11)
[2018-05-19] MEDS: ALBUTEROL/IPRATROPIUM (NEB) 3 ML AMP HHN ×2 (13:26→19:43)
[2018-05-19] MEDS: FUROSEMIDE 40 MG INJ IV (18:06)
[2018-05-19 19:56] LABS: ANION GAP 10 (8-16); BLOOD UREA NITROGEN 13 mg/dl (7-20); CARBON DIOXIDE 29 mmol/L (21-31); CHLORIDE 104 mmol/L (97-110); CREATININE 0.81 mg/dl (0.44-1.00); GLUCOSE 120 mg/dl (70-220); MAGNESIUM 1.6 mg/dl (1.7-2.5); POTASSIUM 3.3 mmol/L (3.5-5.1); SODIUM 140 mmol/L (135-144)
[2018-05-19] MEDS: ATORVASTATIN 40 MG TAB PO (20:16)
[2018-05-19] MEDS: MAGNESIUM SULFATE 2 GM/50 ML 50 ML IVPB (20:16)
[2018-05-19] MEDS: INSULIN GLARGINE [LANTus] (100 UNITS/ML) SYG SC (20:17)
[2018-05-20] MEDS: PIPER-TAZO 3.375 GM IV (PMX) 100 ML IVPB ×4 (00:06→17:23)
[2018-05-20] MEDS: METOCLOPRAMIDE 10 MG INJ IV ×4 (00:06→16:27)
[2018-05-20] MEDS: TPN 1,000 ML IV ×2 (00:07→13:28)
[2018-05-20] MEDS: LORAZEPAM 2 MG INJ IV (00:41)
[2018-05-20] MEDS: INSULIN ASPART [NOVOLOG] 3 ML PEN SC ×4 (00:44→18:00)
[2018-05-20] MEDS ORDERED: morphine 2 MG INJ IV (01:30)
[2018-05-20] MEDS ORDERED: morphine 2 MG INJ (01:48)
[2018-05-20] MEDS: morphine 2 MG INJ IV (01:49)
[2018-05-20 03:23] LABS: HEMATOCRIT 24.8 % (37.0-47.0); HEMOGLOBIN 8.1 g/dl (12.0-16.0); MEAN CORPUSCULAR HEMOGLOBIN 30.3 pg (29.0-33.0); MEAN CORPUSCULAR HGB CONC 32.7 g/dl (32.0-37.0); MEAN CORPUSCULAR VOLUME 92.9 fl (82.0-101.0); MEAN PLATELET VOLUME 10.5 fl (7.4-10.4); PLATELET COUNT 343 10^3/UL (140-415); RED BLOOD COUNT 2.67 10^6/ul (4.20-5.40); RED CELL DISTRIBUTION WIDTH 16.3 % (11.5-14.5)
[2018-05-20 03:23] LABS: WHITE BLOOD COUNT 9.5 10^3/ul (4.8-10.8)
[2018-05-20 03:35] LABS: ADD MAN DIFF? YES; POSITIVE DIFF @See below
[2018-05-20] MEDS: FENTAnyl (DRIP) 1000 mcg/100mL 100 ML IV (03:39)
[2018-05-20 03:48] LABS: ANION GAP 12 (8-16); BLOOD UREA NITROGEN 14 mg/dl (7-20); CALCIUM 8.9 mg/dl (8.4-10.2); CARBON DIOXIDE 27 mmol/L (21-31); CHLORIDE 106 mmol/L (97-110); CREATININE 0.83 mg/dl (0.44-1.00); GLUCOSE 137 mg/dl (70-220); MAGNESIUM 2.1 mg/dl (1.7-2.5); PHOSPHORUS 4.7 mg/dl (2.5-4.9); POTASSIUM 3.7 mmol/L (3.5-5.1); SODIUM 141 mmol/L (135-144)
[2018-05-20] MEDS: VANCOMYCIN 1.5 GM in SOD CHLORIDE 0.9% 250 ML IVPB (03:53)
[2018-05-20 04:01] LABS: VANCOMYCIN,TROUGH 22.4 ug/ml (10.0-20.0)
[2018-05-20] MEDS: POTASSIUM CHLORIDE 50 ML IVPB ×3 (04:35→14:15)
[2018-05-20 04:44] LABS: EOSINOPHILS % (M) 1 % (0-7); GIANT THROMBO% (M) 2 % (0-0); HYPOCHROMASIA 1+ (0-0); LYMPHOCYTES #M 1.5 10^3/ul (0.8-2.9); LYMPHOCYTES % (M) 16 % (15-51); MONOCYTE #M 0.1 10^3/ul (0.3-0.9); MONOCYTES % (M) 2 % (0-11); PLATELET ESTIMATE NORMAL; PLATELET MORPHOLOGY COMMENT @See below; POLYCHROMASIA 1+ (0-0); SEGMENTED NEUTROPHILS (M) % 81 % (39-77); SMUDGE%M 1 % (0-0)
[2018-05-20] MEDS: FUROSEMIDE 40 MG INJ IV ×2 (05:07→18:44)
[2018-05-20] MEDS: PROPOFOL 100 ML IV (05:07)
[2018-05-20] MEDS: PANTOPRAZOLE 40 MG INJ IV (05:07)
[2018-05-20 08:56] LABS: AADO2 Arterial 93.8 mmHg (7.0-24.0); Allen Test ACCEPTAB; Arterial Base Excess 3.7 mmol/L (-3.0-3); Arterial Blood Gas Oxygen Sat 95.5 mmHG (95.0-98.0); Arterial COHb 0.6 % (0.0-3.0); Arterial Fraction of Oxyhgb 94.6 % (93.0-99.0); Arterial HCO3 27.4 mmol/L (22.0-26.0); Arterial MetHb 0.3 % (0.0-1.5); Arterial Total Hemglobin 10.3 g/dl (12.0-18.0); Arterial pCO2 37.5 mmhg (35-45); Blood Gas PS 10; MODE VENT - CPAP; Site Right Radial
[2018-05-20] MEDS: ALBUTEROL/IPRATROPIUM (NEB) 3 ML AMP HHN ×3 (09:26→20:12)
[2018-05-20 09:50] LABS: POTASSIUM 3.6 mmol/L (3.5-5.1)
[2018-05-20] MEDS: TRIUMEQ PO (11:01)
[2018-05-20] MEDS: ASPIRIN 81 MG TAB PO (11:01)
[2018-05-20] MEDS: METOPROLOL 25 MG TAB PO ×2 (11:02→20:26)
[2018-05-20] MEDS: ENOXAPARIN 40 MG/0.4 ML SYG SC (11:14)
[2018-05-20] MEDS: HYDROmorphONE 0.5 MG/0.5 ML SYG IV ×3 (13:28→21:41)
[2018-05-20] MEDS: CASPOFUNGIN 50 MG in SOD CHLORIDE 0.9% 250 ML IVPB (15:56)
[2018-05-20] MEDS: VANCOMYCIN 1 GM 250 ML IVPB (18:44)
[2018-05-20] MEDS: INSULIN GLARGINE [LANTus] (100 UNITS/ML) SYG SC (20:25)
[2018-05-20] MEDS: ATORVASTATIN 40 MG TAB PO (20:25)
[2018-05-21] MEDS: PIPER-TAZO 3.375 GM IV (PMX) 100 ML IVPB ×5 (00:37→23:53)
[2018-05-21] MEDS: INSULIN ASPART [NOVOLOG] 3 ML PEN SC ×5 (00:39→23:59)
[2018-05-21] MEDS: TPN 1,000 ML IV ×2 (00:49→15:35)
[2018-05-21] MEDS: LORAZEPAM 2 MG INJ IV (00:49)
[2018-05-21] MEDS: VANCOMYCIN 1 GM 250 ML IVPB ×2 (04:00→16:33)
[2018-05-21] MEDS: METOCLOPRAMIDE 10 MG INJ IV ×5 (05:40→23:54)
[2018-05-21] MEDS: PANTOPRAZOLE 40 MG INJ IV (05:48)
[2018-05-21] MEDS: HYDROmorphONE 0.5 MG/0.5 ML SYG IV ×4 (05:49→22:28)
[2018-05-21] MEDS: FUROSEMIDE 40 MG INJ IV ×2 (05:53→18:33)
[2018-05-21 08:08] LABS: ANION GAP 14 (8-16); BLOOD UREA NITROGEN 15 mg/dl (7-20); CALCIUM 9.6 mg/dl (8.4-10.2); CARBON DIOXIDE 29 mmol/L (21-31); CHLORIDE 102 mmol/L (97-110); CREATININE 0.85 mg/dl (0.44-1.00); GLUCOSE 164 mg/dl (70-220); PHOSPHORUS 4.3 mg/dl (2.5-4.9); SODIUM 141 mmol/L (135-144)
[2018-05-21] MEDS: ALBUTEROL/IPRATROPIUM (NEB) 3 ML AMP HHN ×3 (08:16→19:58)
[2018-05-21] MEDS: METOPROLOL 25 MG TAB PO ×2 (09:00→20:46)
[2018-05-21] MEDS: ASPIRIN 81 MG TAB PO (09:00)
[2018-05-21] MEDS: ENOXAPARIN 40 MG/0.4 ML SYG SC (09:07)
[2018-05-21] MEDS: TRIUMEQ PO (09:07)
[2018-05-21] MEDS: CASPOFUNGIN 50 MG in SOD CHLORIDE 0.9% 250 ML IVPB (14:33)
[2018-05-21] MEDS: morphine 2 MG INJ IV ×2 (18:33→23:11)
[2018-05-21] MEDS: ATORVASTATIN 40 MG TAB PO (20:46)
[2018-05-21] MEDS: INSULIN GLARGINE [LANTus] (100 UNITS/ML) SYG SC (20:48)
[2018-05-21] MEDS ORDERED: LAMIVUDINE PO (21:00)
[2018-05-21] MEDS ORDERED: ABACAVIR PO (21:00)
[2018-05-21] MEDS ORDERED: ZIDOVUDINE PO (21:00)
[2018-05-21] MEDS: ZOLPIDEM 5 MG TAB PO (23:11)
[2018-05-22] MEDS: HYDROmorphONE 0.5 MG/0.5 ML SYG IV ×5 (02:02→14:22)
[2018-05-22] MEDS: VANCOMYCIN 1 GM 250 ML IVPB ×2 (03:46→17:51)
[2018-05-22] MEDS: PANTOPRAZOLE 40 MG INJ IV (05:10)
[2018-05-22] MEDS: METOCLOPRAMIDE 10 MG INJ IV ×3 (05:14→17:01)
[2018-05-22] MEDS: FUROSEMIDE 40 MG INJ IV ×2 (05:16→17:01)
[2018-05-22] MEDS: INSULIN ASPART [NOVOLOG] 3 ML PEN SC ×2 (05:22→11:31)
[2018-05-22] MEDS: PIPER-TAZO 3.375 GM IV (PMX) 100 ML IVPB ×3 (06:02→17:00)
[2018-05-22 06:40] LABS: ADD MAN DIFF? NO
[2018-05-22 06:47] LABS: WHITE BLOOD COUNT 14.8 10^3/ul (4.8-10.8)
[2018-05-22 06:47] LABS: BASOPHIL # 0.1 10^3/ul (0.0-0.1); BASOPHILS % 0.6 % (0.0-2.0); EOSINOPHILS # 0.3 10^3/ul (0.0-0.5); EOSINOPHILS % 2.3 % (0.0-7.0); HEMATOCRIT 30.1 % (37.0-47.0); HEMOGLOBIN 9.8 g/dl (12.0-16.0); LYMPHOCYTES # 1.8 10^3/ul (0.8-2.9); LYMPHOCYTES % 12.2 % (15.0-51.0); MEAN CORPUSCULAR HEMOGLOBIN 29.9 pg (29.0-33.0); MEAN CORPUSCULAR HGB CONC 32.6 g/dl (32.0-37.0); MEAN CORPUSCULAR VOLUME 91.8 fl (82.0-101.0); MEAN PLATELET VOLUME 11.1 fl (7.4-10.4); MONOCYTE # 0.7 10^3/ul (0.3-0.9); MONOCYTES % 4.7 % (0.0-11.0); NEUTROPHIL # 11.8 10^3/ul (1.6-7.5); NEUTROPHILS % 79.8 % (39.0-77.0); PLATELET COUNT 421 10^3/UL (140-415); RED BLOOD COUNT 3.28 10^6/ul (4.20-5.40); RED CELL DISTRIBUTION WIDTH 15.7 % (11.5-14.5)
[2018-05-22 07:07] LABS: ALANINE AMINOTRANSFERASE 86 IU/L (13-69); ALBUMIN 3.3 g/dl (3.3-4.9); ALBUMIN/GLOBULIN RATIO 0.61; ALKALINE PHOSPHATASE 269 IU/L (42-121); ANION GAP 13 (8-16); ASPARTATE AMINO TRANSFERASE 135 IU/L (15-46); BILIRUBIN,INDIRECT 0.3 mg/dl (0-1.1); BILIRUBIN,TOTAL 0.3 mg/dl (0.2-1.3); BLOOD UREA NITROGEN 12 mg/dl (7-20); CALCIUM 9.7 mg/dl (8.4-10.2); CARBON DIOXIDE 29 mmol/L (21-31); CHLORIDE 99 mmol/L (97-110); CREATININE 0.88 mg/dl (0.44-1.00); GLUCOSE 121 mg/dl (70-220); POTASSIUM 3.7 mmol/L (3.5-5.1); SODIUM 137 mmol/L (135-144); TOTAL PROTEIN 8.7 g/dl (6.1-8.1)
[2018-05-22] MEDS: ALBUTEROL/IPRATROPIUM (NEB) 3 ML AMP HHN ×3 (07:57→19:20)
[2018-05-22] MEDS: ASPIRIN 81 MG TAB PO (08:15)
[2018-05-22] MEDS: METOPROLOL 25 MG TAB PO ×2 (08:15→21:01)
[2018-05-22] MEDS: TRIUMEQ PO (08:16)
[2018-05-22] MEDS: ENOXAPARIN 40 MG/0.4 ML SYG SC (08:20)
[2018-05-22 16:44] LABS: VANCOMYCIN,TROUGH 16.3 ug/ml (10.0-20.0)
[2018-05-22] MEDS: HYDROCODONE/APAP (10/325) TAB PO ×2 (17:00→21:03)
[2018-05-22] MEDS ORDERED: INSULIN ASPART [NOVOLOG] 3 ML PEN SC (17:25)
[2018-05-22] MEDS: Insulin NOVOLOG SS MILD Algorithm (SS with meals and bedtime) SC (21:00)
[2018-05-22] MEDS: ATORVASTATIN 40 MG TAB PO (21:03)
[2018-05-22] MEDS: INSULIN GLARGINE [LANTus] (100 UNITS/ML) SYG SC (21:19)
[2018-05-23] MEDS: PIPER-TAZO 3.375 GM IV (PMX) 100 ML IVPB ×4 (00:37→17:19)
[2018-05-23] MEDS: METOCLOPRAMIDE 10 MG INJ IV ×4 (00:37→17:19)
[2018-05-23] MEDS: ACCUCHECK AT 2AM (Patients on SS coverage) XX (00:44)
[2018-05-23] MEDS: VANCOMYCIN 1 GM 250 ML IVPB ×2 (04:54→15:04)
[2018-05-23] MEDS: HYDROCODONE/APAP (10/325) TAB PO ×3 (04:54→20:23)
[2018-05-23] MEDS: FUROSEMIDE 40 MG INJ IV ×2 (06:55→17:19)
[2018-05-23] MEDS: Insulin NOVOLOG SS MILD Algorithm (SS with meals and bedtime) SC ×4 (07:25→20:46)
[2018-05-23 07:29] LABS: ADD MAN DIFF? NO
[2018-05-23 07:37] LABS: WHITE BLOOD COUNT 11.7 10^3/ul (4.8-10.8)
[2018-05-23 07:37] LABS: BASOPHIL # 0.1 10^3/ul (0.0-0.1); BASOPHILS % 0.6 % (0.0-2.0); EOSINOPHILS # 0.3 10^3/ul (0.0-0.5); EOSINOPHILS % 2.8 % (0.0-7.0); HEMATOCRIT 29.5 % (37.0-47.0); HEMOGLOBIN 9.5 g/dl (12.0-16.0); LYMPHOCYTES # 1.4 10^3/ul (0.8-2.9); LYMPHOCYTES % 11.6 % (15.0-51.0); MEAN CORPUSCULAR HEMOGLOBIN 30.1 pg (29.0-33.0); MEAN CORPUSCULAR HGB CONC 32.2 g/dl (32.0-37.0); MEAN CORPUSCULAR VOLUME 93.4 fl (82.0-101.0); MEAN PLATELET VOLUME 11.3 fl (7.4-10.4); MONOCYTE # 0.7 10^3/ul (0.3-0.9); NEUTROPHIL # 9.2 10^3/ul (1.6-7.5); NEUTROPHILS % 78.7 % (39.0-77.0); PLATELET COUNT 380 10^3/UL (140-415); RED BLOOD COUNT 3.16 10^6/ul (4.20-5.40); RED CELL DISTRIBUTION WIDTH 15.6 % (11.5-14.5)
[2018-05-23 07:54] LABS: ANION GAP 16 (8-16); BLOOD UREA NITROGEN 12 mg/dl (7-20); CALCIUM 9.4 mg/dl (8.4-10.2); CARBON DIOXIDE 27 mmol/L (21-31); CHLORIDE 100 mmol/L (97-110); CREATININE 0.98 mg/dl (0.44-1.00); GLUCOSE 104 mg/dl (70-220); MAGNESIUM 1.5 mg/dl (1.7-2.5); PHOSPHORUS 5.6 mg/dl (2.5-4.9); POTASSIUM 3.6 mmol/L (3.5-5.1); SODIUM 139 mmol/L (135-144)
[2018-05-23] MEDS: ASPIRIN 81 MG TAB PO (08:18)
[2018-05-23] MEDS: METOPROLOL 25 MG TAB PO ×2 (08:18→20:23)
[2018-05-23] MEDS: TRIUMEQ PO (08:19)
[2018-05-23] MEDS: ALBUTEROL/IPRATROPIUM (NEB) 3 ML AMP HHN ×3 (08:37→20:40)
[2018-05-23] MEDS: ENOXAPARIN 40 MG/0.4 ML SYG SC (09:14)
[2018-05-23] MEDS: MAGNESIUM SULFATE 2 GM/50 ML 50 ML IVPB (13:18)
[2018-05-23] MEDS ORDERED: IOHEXOL 14.3 MG(I)/ML (ADULT) BTL PO (18:30)
[2018-05-23] MEDS: SOD CHLORIDE 0.9% 100 ML (19:55)
[2018-05-23] MEDS: IOHEXOL 300MG/ML 150 ML BTL (19:56)
[2018-05-23] MEDS: ATORVASTATIN 40 MG TAB PO (20:23)
[2018-05-23] MEDS: INSULIN GLARGINE [LANTus] (100 UNITS/ML) SYG SC (20:45)
[2018-05-23] MEDS: ZOLPIDEM 5 MG TAB PO (22:00)
[2018-05-23] MEDS: HYDROmorphONE 0.5 MG/0.5 ML SYG IV (22:32)
[2018-05-24] MEDS: PIPER-TAZO 3.375 GM IV (PMX) 100 ML IVPB ×4 (00:29→17:47)
[2018-05-24] MEDS: HYDROCODONE/APAP (10/325) TAB PO ×4 (00:30→16:06)
[2018-05-24] MEDS: METOCLOPRAMIDE 10 MG INJ IV ×4 (00:31→17:46)
[2018-05-24] MEDS ORDERED: HYDROmorphONE 1 MG/ML SYG IV (01:30)
[2018-05-24 01:51] LABS: LACTIC ACID 0.9 mmol/L (0.5-2.0)
[2018-05-24] MEDS: ACCUCHECK AT 2AM (Patients on SS coverage) XX (02:00)
[2018-05-24] MEDS: VANCOMYCIN 1 GM 250 ML IVPB ×2 (05:26→16:06)
[2018-05-24] MEDS: FUROSEMIDE 40 MG INJ IV ×2 (05:37→17:47)
[2018-05-24] MEDS: Insulin NOVOLOG SS MILD Algorithm (SS with meals and bedtime) SC ×4 (07:25→21:00)
[2018-05-24] MEDS: ALBUTEROL/IPRATROPIUM (NEB) 3 ML AMP HHN ×3 (08:17→19:53)
[2018-05-24] MEDS: METOPROLOL 25 MG TAB PO ×2 (08:29→21:35)
[2018-05-24] MEDS: ASPIRIN 81 MG TAB PO (08:29)
[2018-05-24] MEDS: ENOXAPARIN 40 MG/0.4 ML SYG SC (08:31)
[2018-05-24] MEDS: TRIUMEQ PO (08:34)
[2018-05-24 09:58] LABS: ADD UMIC YES; UR ASCORBIC ACID NEGATIVE (NEGATIVE); UR BILIRUBIN (Dip) NEGATIVE (NEGATIVE); UR BLOOD (Dip) 2+ mg/dL (NEGATIVE); UR CLARITY CLOUDY (CLEAR); UR COLOR YELLOW (YELLOW); UR GLUCOSE (Dip) NEGATIVE (NEGATIVE); UR KETONES (Dip) NEGATIVE (NEGATIVE); UR LEUKOCYTE ESTERASE (Dip) 3+ Leu/ul (NEGATIVE); UR NITRITE (Dip) NEGATIVE (NEGATIVE); UR NONSQUAMOUS EPITHELIAL CELL 1 /HPF (NONE SEEN); UR RBC 12 /HPF (0-5); UR SPECIFIC GRAVITY (Dip) 1.032 (1.003-1.030); UR SQUAMOUS EPITHELIAL CELL FEW /HPF (FEW); UR TOTAL PROTEIN (Dip) 1+ mg/dl (NEGATIVE); UR UROBILINOGEN (Dip) NEGATIVE (NEGATIVE); UR WBC 31 /HPF (0-5)
[2018-05-24] MEDS: ATORVASTATIN 40 MG TAB PO (21:34)
[2018-05-24] MEDS: INSULIN GLARGINE [LANTus] (100 UNITS/ML) SYG SC (21:40)
== END 2018-05-24 22:40 | disposition home or self-care (01) | DRG 329 ==
LOC: MS1 05-09 09:55 → TEL 05-21 23:08 → E/R 22:40 → MS1 05-05 01:24 → ICU 05-09 20:11 → MS1 05-05 18:24
PROC: 0DQ80ZZ Repair Small Intestine, Open Approach (ICD-10-PCS; principal; 2018-05-09 16:37)
PROC: 0DN80ZZ Release Small Intestine, Open Approach (ICD-10-PCS; 2018-05-09 16:37)
PROC: 02HV33Z Insertion of Infusion Device into Superior Vena Cava, Percutaneous Approach (ICD-10-PCS; 2018-05-09 16:37)
PROC: 3E0436Z Introduction of Nutritional Substance into Central Vein, Percutaneous Approach (ICD-10-PCS; 2018-05-09 16:37)
PROC: 0BH17EZ Insertion of Endotracheal Airway into Trachea, Via Natural or Artificial Opening (ICD-10-PCS; 2018-05-09 16:37)
PROC: 30233N1 Transfusion of Nonautologous Red Blood Cells into Peripheral Vein, Percutaneous Approach (ICD-10-PCS; 2018-05-09 16:37)
PROC: 5A1955Z Respiratory Ventilation, Greater than 96 Consecutive Hours (ICD-10-PCS; 2018-05-09 16:37)
DX: K56.51 Intestinal adhesions [bands], with partial obstruction (principal); A41.9 Sepsis, unspecified organism; K63.1 Perforation of intestine (nontraumatic); R65.21 Severe sepsis with septic shock; N17.0 Acute kidney failure with tubular necrosis; J96.01 Acute respiratory failure with hypoxia; J69.0 Pneumonitis due to inhalation of food and vomit; K65.9 Peritonitis, unspecified; K65.1 Peritoneal abscess; K40.30 Unilateral inguinal hernia, with obstruction, without gangrene, not specified as recurrent; E44.1 Mild protein-calorie malnutrition; E87.1 Hypo-osmolality and hyponatremia; D62 Acute posthemorrhagic anemia; E86.0 Dehydration; E87.6 Hypokalemia; E83.42 Hypomagnesemia; E66.01 Morbid (severe) obesity due to excess calories; E78.5 Hyperlipidemia, unspecified; I11.0 Hypertensive heart disease with heart failure; I50.9 Heart failure, unspecified; J44.9 Chronic obstructive pulmonary disease, unspecified; Z68.38 Body mass index [BMI] 38.0-38.9, adult; Z90.49 Acquired absence of other specified parts of digestive tract; Z97.5 Presence of (intrauterine) contraceptive device; Z87.891 Personal history of nicotine dependence; Z79.899 Other long term (current) drug therapy
CPT/HCPCS: 31500; 36415; 36430; 36569; 36600; 71045; 71250; 74018; 74019; 74176; 74177; 74250; 74280; 76937; 80048; 80053; 80061; 80069; 80202; 81001; 82247; 82248; 82270; 82728; 82803; 82962; 83010; 83540; 83605; 83615; 83690; 83735; 84100; 84132; 84134; 84478; 84484; 85014; 85018; 85025; 85610; 85730; 86360; 86850; 86900; 86901; 86920; 87040; 87081; 87086; 87536; 92610; 93005; 94002; 94003; 94640; 94660; 94770; 96374; 96375; 97110; 97116; 97161; 97530; 99285-25